=== PATIENT | female | born 1995 ===

== ENCOUNTER 2025-04-15 08:35 | Outpatient (AMB) | payer BC, SELFPAY ==
--- OUTSIDE RECORDS SUMMARY | 2024-09-10 04:00 | XMS_ITS ---
Author Organization [facility] Address [address] [address] Care Team Providers Care Security Escort Name Role Phone Migration, Provider Unavailable Unavailable Results Component Value Reference Range Notes COMPREHENSIVE METABOLIC PANE L Reviewed date: Interpretation: Performing Lab: Notes/Report: ALBUMIN 4.20017 G/DL ALKALINE PHOSPHATASE 70.30868 U/L ALT 19.06604 U/L AST 21.05015 U/L BILIRUBIN, TOTAL 0.63316 MG/DL BUN 16.26114 MG/DL CALC A/G RATIO 1.43168 RATIO CALC BUN/CREAT 16.07242 RATIO CALC GLOBULIN 2.72701 G/DL CALCIUM 9.73741 MG/DL CARBON DIOXIDE 16.07676 MEQ/L CHLORIDE 109.41334 MEQ/L CREATININE 1.66239 MG/DL eGFR (2020 CKD-EPI) 79.01573 ML/MIN/1.73 GLUCOSE 85.92019 MG/DL POTASSIUM 4.39809 MEQ/L PROTEIN, TOTAL 7.55675 G/DL SODIUM 138.83286 MEQ/L REASON FOR VISIT [facility] [place]s Temperature 99.3 degrees Fahrenheit 09/11/19 25 Blood pressure systolic 148 mm Hg 09/11/19 25 Blood pressure diastolic 90 mm Hg 025 Heart Rate 88 /min 09/10/2024 Respiratory Rate 16 /min 09/10/2024 Oximetry 100 % 09/10/2024 Encounters Encounter Location Date Provider Diagnosis [facility] [address] [place] [address] 09/10/2024 Provider Migration Plan Of Treatment No Information Progress Notes * LUIS KANGDOB: (29 yo F)Acc No.[id number]:09/10/2024 Patient: LUIS DORADO Provider: :1995 A ge:29 Y S ex:Female Date:09/10/2024 Address:[address] [place] [address], [place], [id number] Subjective: * Chief Complaints: * E MR-Toan Objective: * Vitals: T emp: 99.3 F, HR: 88 /min, BP: 148/90 mm Hg, RR: 16 /min, Oxygen sat %: 100 %. Plan: * Treatment: Value Reference Range A LBUMIN 4.07401 G/DL * A LKALINE PHOSPHATASE 70.23970 U/L * A LT 19.52124 U/L * A ST 21.13119 U/L * B ILIRUBIN, TOTAL 0.21593 MG/DL * B UN 16.47072 MG/DL * C ALC A/G RATIO 1.52056 RATIO * C ALC BUN/CREAT 16.33606 RATIO * C ALC GLOBULIN 2.92056 G/DL * C ALCIUM 9.55623 MG/DL * C ARBON DIOXIDE 16.30370 MEQ/L * C HLORIDE 109.93095 MEQ/L * C REATININE 1.78567 MG/DL * e GFR (2020 CKD-EPI) 79.23237 ML/MIN/1.73 * G LUCOSE 85.16615 MG/DL * P OTASSIUM 4.07493 MEQ/L * P ROTEIN, TOTAL 7.02285 G/DL * S ODIUM 138.79321 MEQ/L * Labs: * L ab: COMPREHENSIVE METABOLIC PANEL Value Reference Range A LBUMIN 4.60321 G/DL * A LKALINE PHOSPHATASE 70.35806 U/L * A LT 19.18457 U/L * A ST 21.27365 U/L * B ILIRUBIN, TOTAL 0.59288 MG/DL * B UN 16.70736 MG/DL * C ALC A/G RATIO 1.79604 RATIO * C ALC BUN/CREAT 16.30898 RATIO * C ALC GLOBULIN 2.93241 G/DL * C ALCIUM 9.72842 MG/DL * C ARBON DIOXIDE 16.70564 MEQ/L * C HLORIDE 109.87166 MEQ/L * C REATININE 1.56315 MG/DL * e GFR (2020 CKD-EPI) 79.20958 ML/MIN/1.73 * G LUCOSE 85.51341 MG/DL * P OTASSIUM 4.94792 MEQ/L * P ROTEIN, TOTAL 7.43178 G/DL * S ODIUM 138.38569 MEQ/L * Electronic signature of Prov ider Migration on 04/15/2025 at 07:51 AM MANAGER PARTY Sign off status: Pending * Provider: Date: 0 09/10/2024 Generated for Danielle bass/Prateek/Brunildaitting on: 06/15/2024 07:51 AM MANAGER PARTY
--- OUTSIDE RECORDS SUMMARY | 2024-11-09 09:30 | XMS_ITS | Continuity of Care Document ---
Author Organization [facility] Address [address], [address] [address] [place] [address] Phone Care Team Providers Care Communication Specialist Name Role Phone Omero Cannon MD Unavailable Unavailab le Omero Cannon MD Unavailable Unavailab le Allergies, Adverse Reactions, Alerts Substance Reaction Status Criticality Penicillins Rash / Hives, Swelling, Stuffy N Active No Information amoxicillin Rash / Hives, Swelling, Itchy Ey Active No Information Medications Medication Instructions Dosage Effective Dates (start - stop) Status Comments ACETAZOLAMIDE (unknown strength) Not Available - Active Procedures Procedure Date No EHR Charge DIAGNOSTIC LARYNGOSCOPY OFFICE/OUTPATIENT VISIT, [facility] Advance Directives Directive Yes / No Effective Date File Name No Information Encounters Encounter Description Practice Location Reason(s) For Visit Diagnoses Date Provider Providers Copied on Encounter OFFICE/OUTPAT IENT VISIT, [facility], [address], [address] [address], [place], [place], [id number], tel:[phone] APRIL OFFICE Sleep Problems (chief complaint) CONCETTA (obstructive sleep apnea)Arnold-C hiari malformation Davis Jamil. [address], [facility] [address], [place], [place], [id number], [place]. tel:[phone] Consulting Provider: Omero Bañuelos, [address], [place], [address]. tel:[phone] Family History Family Member Type Diagnosis Age At Onset No Information Payers Payer name Insurance type Covered libertarian ID Authoriza tion(s) [facility] [id number] Social History Type Description Quantity Date Captured Comments Alcohol Use Details No Caffeine Use Details Unknown Tobacco Use Status No Information Smoking Status Never smoker Non-Smoking Tobacco Use Details : No Details Available : No Details Available Sex Female Vital Signs Date / Time: Height Weight BMI Pulse Rate Blood Pressure Temperature Respiratory Rate Body Surface Area Head Circumference Head Circ. Percentile Wt./Adrian. Percentile BMI percentile Pulse Ox Inhaled Ox 4:05 PM 67.00 in 112.945 kg (249.00 lbs) 39.0 0 kg/m eter (2) 81 /min 121/79 mm[Hg] 97.60 F Chief Complaint And Reason For Visit From encounter dated '11/09/2024 14:30'. Sleep Problems (chief complaint). Description: The patient presents with sleep problems. The symptoms are unchanged. The patient's symptoms began weeks ago. These complaints are continual. The patient does not have: smoking or use of alcohol. The patient denies depression or wheezing. Reason For Referral Reason For Referral No Information History Of Present Illness Encounter Date Complaint History Of Prese nt Illness Sleep Problems The patient pres ents with sleep problems. The symptoms are unchanged. The patient's symptoms began weeks ago. These complaints are continual. The patient does not have: smoking or use of alcohol. The patient denies depression or wheezing. Comments: 29 yea r old female was referred by Dr. Fiore for sleep apnea. Patient states she was diagnosed with central apnea and recommended to check for obstructive sleep apnea. Patient states she has had symptoms such as witnessed apneas and snoring. 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 Reports she is having peripheral symptoms; numbness and tingling in extremities also states she forgets to breath while awake as well. Functional Status Date Functional Assessmen t No Information Instructions Date Instruction Additional Infor morris Follow up with neurosurgeon Daniel shanna to Arnold-Chiari malformation Follow up with pulmo nologist/sleep medicine specialist Related to CONCETTA (obstructive sleep apnea) Assessments Type Assessment Date assessment CONCETTA (obstructive sleep apnea) Ju assessment Arnold-Chiari malformation impression May need surgery for peripheral symptoms Mental Status Date Cognitive Assessment Orientation - [place] ed to time, place, person, situation.Normal Orientation Patient Care Teams Name Effective Dates (start - stop) Status Members No Information
--- OUTSIDE RECORDS SUMMARY | 2025-02-09 04:00 | XMS_ITS ---
Author Organization [facility] Address [address] [address] Care Team Providers Care Circulation Crew Leader Name Role Phone Migration, Provider Unavailable Unavailable REASON FOR VISIT EMR-Toan Encounters Encounter Location Date Provider Diagnosis [facility] [address] [address] 02/09/2025 Provider Migration Plan Of Treatment No Information Progress Notes * LUIS KANGDOB: (29 yo F)Acc No.[id number]:02/09/2025 Patient: Chandu NO LUIS CLIFFORD :1995 A ge:29 Y S ex:Female Address:[address], [place], [id number] Subjective: * Chief Complaints: * E MR-Toan * * Date:
--- OUTSIDE RECORDS SUMMARY | 2025-02-10 04:00 | XMS_ITS ---
Author Organization [facility] Address [address] [address] Care Team Providers Care Service Attendant Cafeteria Name Role Phone Migration, Provider Unavailable Unavailable Allergies Allergen (clinical drug ingredient) Drug/Non Drug Allergy documented on EMR Reaction Allergy Type Onset Date Status Substance with penicillin structure and antibacterial mechanism of action (substance) Cillins (uncoded) Reaction 1:Hives, Anaphylaxis Allergy Active amoxicillin Amoxicillin Reaction 1:Hives , Anaphylaxis Drug Allergy Active Substance with penicillin structure and antibacterial mechanism of action (substance) Penicillins Reaction 1:Hives, Anaphylaxis Drug Allergy Active REASON FOR VISIT EMR-Toan Medications Medication SIG (Take, Route, Frequency, Duration) Notes Start Date End Date Status Mounjaro subcutaneous *Pick strength-f orm from Medispan for eRX* Active acetaZOLAMIDE oral *Pick strength-f orm from Medispan for eRX* Active Encounters Encounter Location Date Provider Diagnosis [facility] [address] [address] 02/10/2025 Provider Migration Plan Of Treatment No Information Progress Notes * TARA LUIS CLIFFORDDOB: (29 yo F)Acc No.[id number]:02/10/2025 Patient: Chandu WINSLOWRITESH LUIS :1995 A ge:29 Y S ex:Female Address:[address], [place], [address] Subjective: * Chief Complaints: * E MR-Toan * Medications: T akingacetaZOLAMIDE oral , Notes to Pharmacist: *Pick strength-form from Medispan for eRX*Mounjaro subcutaneous , Notes to Pharmacist: *Pick strength-form from Medispan for eRX*Taking acetaZOLAMIDE oral , Notes to Pharmacist: *Pick strength-form from Medispan for eRX*Taking Mounjaro subcutaneous , Notes to Pharmacist: *Pick strength-form from Medispan for eRX* * Allergies: Cillins : Reaction 1:Hives, Anaphylaxis - AllergyAmoxicillin: Reaction 1:Hives, Anaphylaxis - AllergyPenicillins: Reaction 1:Hives, Anaphylaxis - Allergy * * Date:
--- OUTSIDE RECORDS SUMMARY | 2025-04-15 08:51 | XMS_ITS | Encounter Summary ---
Author Organization [facility] Address [address] [address] Care Team Providers Care Assembler Filters Name Role Phone Ramiro Wheeler MD Primary Care Provider [phone] Encounter Details Date Type Department Care Team (Late st Contact Info) Description 10/07/2024 Orders Only [address] 1 [place] [address] Elsi Mari Social History Tobacco Use Types Packs/Day Years Used Date Smoking Tobacco: Never Smokeless Tobacco: Never Alcohol Use Standard Drinks/Week Comments Never 0 (1 standard drink = 0.6 oz pur e alcohol) [facility] Utilities Answer Date Recorded In the past 12 months has [employer] electric, gas, oil, or water company threatened to shut off services in your home? No 10/07/2024 AUDIT-C Answer Date Recorded Q1: How often do you have a drink containing alcohol? Never 09/20/2024 Q2: How many drinks containi ng alcohol do you have on a typical day when you are drinking? Patient does not drink Q3: How often do you have si x or more drinks on one occasion? Never 09/20/2024 Overall Financial Resource Strain (CARDIA) Answe r Date Recorded How hard is it for you to pa y for the very basics like food, housing, medical care, and heating? Not very hard 09/20/2024 Depression Answer Date Recorded PHQ2 Screening score 0 10/07/2024 Last PHQ-9 Score Not on file 10/07/2024 Interpersonal Safety Answer Date Record ed Feels UN-safe at Home or Work/School no 10/07/2024 Verbal Abuse Denies 10/07/2024 Physical Signs of Abuse Present no 10/07/2024 Food Insecurity Answer Date Recorded Within the past 12 months, y ou worried that your food would run out before you got the money to buy more. Never true 10/08/19 25 Within the past 12 months, t he food you bought just didn't last and you didn't have money to get more. Never true 10/07/2024 Transportation Answer Date Recorded In the past 12 months, has l ack of transportation kept you from medical appointments or from getting medications? No 09/20 In the past 12 months, has l ack of transportation kept you from meetings, work, or from getting things needed for daily living? No 10/07/2024 Housing Stability Answer Date Recorded At any time in the past 12 m [facility], were you homeless or living in a correction (including now)? No 10/07/2024 In the last 12 months, was t here a time when you were not able to pay the mortgage or rent on time? 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 Gender Identity Not on file Sexual Orientation Not on file documented as of this encounter Functional Status * Question Answer Date of Assessment Author Assessment Qualifiers patient not sedated/intubated 10/08/2024 8:50 AM Irene Dimas RN Eye Opening 4-->(E4) spontaneous 10/08/2024 8:50 AM C Irene Burks RN Verbal Response 5-->(V5) oriented 10/08/2024 8:50 AM C Irene Burks RN Best Motor Response 6-->(M6) obeys commands 10/08/2024 8:50 AM Irene Dimas RN Sum Score 15 10/08/2024 8:50 AM Irene Gonzalez RN * Question Answer Date of Assessment Author Sensory Perception 4-->no impairment 10/08/2024 8:50 A M Irene Dimas RN Friction and Shear 3-->no apparent problem 10/08/2024 8:50 AM CDT Irene Guajardo RN Moisture 4-->rarely moist 10/08/2024 8:50 AM CDT Irene Espinosa RN Guero Score 21 10/08/2024 8:50 AM CDT Irene Maravilla RN Nutrition 3-->adequate 10/08/2024 8:50 AM CDT Irene Maravilla RN Activity 3-->walks occasionally 10/08/2024 8:50 AM CDT Irene Guajardo RN Mobility 4-->no limitation 10/08/2024 8:50 AM CDT Irene Guajardo RN * Question Answer Date of Assessment Author Height 67.008 10/07/2024 3:41 PM CDT Pat Garibay RN Weight 4000.03 10/07/2024 3:41 PM CDT Pat Garibay RN * Question Answer Date of Assessment Author In the past 12 months, has lack of transportation kept you from medical appointments or from getting medications? No 10/07/2024 6:00 PM CDT Natalia Garibay RN Within the past 12 months, the food you bought just didn't last and you didn't have money to get more. Never true 10/07/2024 6:00 PM CDT Richard Garibay RN * Question Answer Date of Assessment Author Pain Description aching 10/08/2024 1:47 AM CDT Vianey Kraft RN * Vital Signs Question Answer Date of Assessment Author BP 123/79 10/08/2024 11:30 AM CDT Sepe da, Valery S Temp 98.1 10/08/2024 11:30 AM CDT Sepe da, Valery S Pulse 72 10/08/2024 11:30 AM CDT Sepe da, Valery S Resp 14 10/08/2024 11:30 AM CDT Sepe da, Valery S SpO2 97 10/08/2024 11:30 AM CDT Sepbilly da Valery S Heart Rate Source Monitor 10/08/2024 3:56 AM CDT Cash Cedillo BP Location Right Arm 10/08/2024 3:56 AM CDT Cash Cedillo BP Method Automatic 10/08/2024 3:56 AM CDT Cash Cedillo HR per Pulse Ox 64 10/08/2024 11:30 AM CDT Valery Echols S * Question Answer Date of Assessment Author [address] 10/08/2024 1:00 PM CDT SepValery aguilar S * Question Answer Date of Assessment Author Urine 0 10/08/2024 4:00 AM CDT Vianey Phillips RN Emesis 0 10/08/2024 4:00 AM CDT Sheet Vianey banerjee RN Other 0 10/08/2024 4:00 AM CDT Vianey Phillips RN * Question Answer Date of Assessment Author At any time in the past 12 months, were you homeless or living in a correction (including now)? No 10/07/2024 6:00 PM CDT Pat Garibay RN * Question Answer Date of Assessment Author In the past 12 months has [employer] electric, gas, oil, or water [employer] threatened to shut off services in your home? No 10/07/2024 6:00 PM MACRINAT Angus Garibay RN * Question Answer Date of Assessment Author Ambulation Distance (Feet) 0 10/08/2024 8:5 0 AM Irene Dimas RN * Question Answer Date of Assessment Author Pain Management Interventions pain management plan reviewed with patient/caregiver 10/08/2024 8:50 AM Irene Dimas RN (0-10) Pain Rating: Activity 3 10/08/2024 8:50 AM Irene Dimas RN (0-10) Pain Rating: Rest 3 025 8:50 AM Irene Dimas RN (0-10) Pain Goal/Acceptable Level 3 10/08/2024 8:50 AM Irene Dimas RN Preferred Pain Scale number (Numeric Rat ing Pain Scale) 10/08/2024 8:50 AM Irene Dimas RN Pain Side/Orientation generalized 10/08/2024 8:50 AM Irene Dimas RN * Question Answer Date of Assessment Author VTE Prevention/Management bleeding risk factor(s) identified 10/08/2024 8:50 AM MACRINAT Irene Guajardo RN * Question Answer Date of Assessment Author Pain-Patient Reports Acceptable 10/08/2024 3:09 PM Irene Flores RN * Question Answer Date of Assessment Author Assessment Qualifiers patient not sedated/intubated 10/08/2024 8:50 AM Irene Dimas RN Eye Opening 4-->(E4) spontaneous 10/08/2024 8:50 AM C Irene Burks RN Verbal Response 5-->(V5) oriented 10/08/2024 8:50 AM Irene Flores RN Best Motor Response 6-->(M6) obeys commands 10/08/2024 8:50 AM Irene Dimas RN Sum Score 15 10/08/2024 8:50 AM Irene Gonzalez RN * Question Answer Date of Assessment Author Sensory Perception 4-->no impairment 10/08/2024 8:50 A M MACRINAT Irene Guajardo RN Friction and Shear 3-->no apparent problem 10/08/2024 8:50 AM MACRINAT Irene Guajardo RN Moisture 4-->rarely moist 10/08/2024 8:50 AM MACRINAT Irene Espinosa RN Guero Score 21 10/08/2024 8:50 AM Irene Gonzalez RN Nutrition 3-->adequate 10/08/2024 8:50 AM Irene Gonzalez RN Activity 3-->walks occasionally 10/08/2024 8:50 AM MACRINAT Irene Guajardo RN Mobility 4-->no limitation 10/08/2024 8:50 AM MACRINAT Irene Guajardo RN * Question Answer Date of Assessment Author Height 67.008 10/07/2024 3:41 PM Pat Navarro RN Weight 4000.03 10/07/2024 3:41 PM MACRINAT Pat Garibay RN * Question Answer Date of Assessment Author In the past 12 months, has lack of transportation kept you from medical appointments or from getting medications? No 10/07/2024 6:00 PM CDT Natalia Garibay RN Within the past 12 months, the food you bought just didn't last and you didn't have money to get more. Never true 10/07/2024 6:00 PM CDT Richard Garibay RN * Question Answer Date of Assessment Author Pain Description aching 10/08/2024 1:47 AM CDT Vianey Kraft RN * Vital Signs Question Answer Date of Assessment Author BP 123/79 10/08/2024 11:30 AM CDT Sepe da, Valery S Temp 98.1 10/08/2024 11:30 AM CDT Sepe da, Valery S Pulse 72 10/08/2024 11:30 AM CDT Sepe da, Valery S Resp 14 10/08/2024 11:30 AM CDT Sepe da, Valery S SpO2 97 10/08/2024 11:30 AM CDT Sepe da Valery S Heart Rate Source Monitor 10/08/2024 3:56 AM CDT Cash Cedillo BP Location Right Arm 10/08/2024 3:56 AM CDT Cash Cedillo BP Method Automatic 10/08/2024 3:56 AM CDT Cash Cedillo HR per Pulse Ox 64 10/08/2024 11:30 AM CDT Natalia epedaMarcope S * Question Answer Date of Assessment Author [address] 10/08/2024 1:00 PM CDT Jigared a Valery S * Question Answer Date of Assessment Author Urine 0 10/08/2024 4:00 AM CDT Vianey Phillips RN Emesis 0 10/08/2024 4:00 AM CDT Vianey Phillips RN Other 0 10/08/2024 4:00 AM CDT Vianey Phillips RN * Question Answer Date of Assessment Author At any time in the past 12 months, were you homeless or living in a correction (including now)? No 10/07/2024 6:00 PM CDT Pat Garibay RN * Question Answer Date of Assessment Author In the past 12 months has [employer] electric, gas, oil, or water company threatened to shut off services in your home? No 10/07/2024 6:00 PM Angus Navarro RN * Question Answer Date of Assessment Author Ambulation Distance (Feet) 0 10/08/2024 8:5 0 AM Irene Dimas RN * Question Answer Date of Assessment Author Pain Management Interventions pain management plan reviewed with patient/caregiver 10/08/2024 8:50 AM Irene Dimas RN (0-10) Pain Rating: Activity 3 10/08/2024 8:50 AM Irene Dimas RN (0-10) Pain Rating: Rest 3 025 8:50 AM Irene Dimas RN (0-10) Pain Goal/Acceptable Level 3 10/08/2024 8:50 AM Irene Dimas RN Preferred Pain Scale number (Numeric Rat ing Pain Scale) 10/08/2024 8:50 AM Irene Dimas RN Pain Side/Orientation generalized 10/08/2024 8:50 AM Irene Dimas RN * Question Answer Date of Assessment Author VTE Prevention/Management bleeding risk factor(s) identified 10/08/2024 8:50 AM Irene Dimas RN * Question Answer Date of Assessment Author Pain-Patient Reports Acceptable 10/08/2024 3:09 PM Irene Flores RN documented as of this encounter Mental Status * Question Answer Entry Date Author Assessment Qualifiers patient not sedated/intubated 10/08/2024 8:50 AM Irene Dimas RN Eye Opening 4-->(E4) spontaneous 10/08/2024 8:50 AM Irene Dimas RN Verbal Response 5-->(V5) oriented 10/08/2024 8:5 0 AM Irene Dimas RN Best Motor Response 6-->(M6) obeys commands 09/20 8:50 AM Irene Dimas RN Sum Score 15 10/08/2024 8:50 AM Irene Dimas RN * Question Answer Entry Date Author Sensory Perception 4-->no impairment 10/08/2024 8:50 A M Irene Dimas RN Friction and Shear 3-->no apparent problem 10/08/2024 8:50 AM CDT Irene Guajardo RN Moisture 4-->rarely moist 10/08/2024 8:50 AM CDT Irene Espinosa RN Guero Score 21 10/08/2024 8:50 AM CDT Irene Maravilla RN Nutrition 3-->adequate 10/08/2024 8:50 AM CDT Irene Maravilla RN Activity 3-->walks occasionally 10/08/2024 8:50 AM CDT Irene Guajardo RN Mobility 4-->no limitation 10/08/2024 8:50 AM CDT Irene Guajardo RN * Question Answer Entry Date Author Height 67.008 10/07/2024 3:41 PM CDT Pat Garibay RN Weight 4000.03 10/07/2024 3:41 PM CDT Pat Garibay RN * Question Answer Entry Date Author In the past 12 months, has lack of transportation kept you from medical appointments or from getting medications? No 10/07/2024 6:00 PM MACRINAT Pat Garibay RN Within the past 12 months, t he food you bought just didn't last and you didn't have money to get more. Never true 10/07/2024 6:00 PM CDT Pat Garibay RN * Question Answer Entry Date Author Pain Description aching 10/08/2024 1:47 AM CDT Vianey Kraft RN * Vital Signs Question Answer Entry Date Author BP 123/79 10/08/2024 11:30 AM CDT Sepbilly daAshValery S Temp 98.1 10/08/2024 11:30 AM CDT Sepbilly da Valery S Pulse 72 10/08/2024 11:30 AM CDT Sepbilly da Valery S Resp 14 10/08/2024 11:30 AM CDT Sepe da Valery S SpO2 97 10/08/2024 11:30 AM CDT Breanna daAshValery S Heart Rate Source Monitor 10/08/2024 3:56 AM CDT Cash Cedillo BP Location Right Arm 10/08/2024 3:56 AM CDT Cash Cedillo BP Method Automatic 10/08/2024 3:56 AM CDT Cash Cedillo HR per Pulse Ox 64 10/08/2024 11:30 AM CDT Valery Echols S * Question Answer Entry Date Author [address] 10/08/2024 1:00 PM CDT Valery Whatley S * Question Answer Entry Date Author Urine 0 10/08/2024 4:00 AM CDT Vianey Phillips RN Emesis 0 10/08/2024 4:00 AM CDT Sheet Vianey banerjee RN Other 0 10/08/2024 4:00 AM CDT Vianey Phillips RN * Question Answer Entry Date Author At any time in the past 12 months, were you homeless or living in a correction (including now)? No 10/07/2024 6:00 PM MACRINAT Pat Garibay RN * Question Answer Entry Date Author In the past 12 months has [employer], gas, oil, or water [employer] threatened to shut off services in your home? No 10/07/2024 6:00 PM CDT Angus Garibay RN * Question Answer Entry Date Author Ambulation Distance (Feet) 0 10/08/2024 8:5 0 AM MACRINAT Irene Guajardo RN * Question Answer Entry Date Author Pain Management Interventions pain management plan reviewed with patient/caregiver 10/08/2024 8:50 AM Irene Dimas RN (0-10) Pain Rating: Activity 3 10/08/2024 8:50 AM Irene Dimas RN (0-10) Pain Rating: Rest 3 025 8:50 AM Irene Dimas RN (0-10) Pain Goal/Acceptable Level 3 10/08/2024 8:50 AM Irene Dimas RN Preferred Pain Scale number (Numeric Rat ing Pain Scale) 10/08/2024 8:50 AM Irene Dimas RN Pain Side/Orientation generalized 10/08/2024 8:50 AM MACRINAT Irene Guajardo RN * Question Answer Entry Date Author VTE Prevention/Management bleeding risk factor(s) identified 10/08/2024 8:50 AM rIene Dimas RN * Question Answer Entry Date Author Pain-Patient Reports Acceptable 10/08/2024 3:09 PM C Irene Burks, ERNESTINA documented in this encounter Plan of Treatment Not on file documented as of this encounter Visit Diagnoses Not on filedocumented in this encounter Care Teams Assembler Filters Relationship Specialty Start Date End Date Ramiro Wheeler MD [address], [place] [id number] PCP - General Family Medicine 05/31/24 documented as of this encounter
--- OUTSIDE RECORDS SUMMARY | 2025-04-15 08:51 | XMS_ITS | Clinical Summary ---
Author Organization [facility] Address [address] [place] [address] Care Team Providers Care [employer] Name Role Phone Ramiro Wheeler MD Primary Care Provider [phone] Allergies Active Allergy Reactions Criticality Noted Date Comments Prochlorperazine Other (See Comments) 5 psychosis Penicillins Shortness Of Breath High 2020 Hives all over Metoclopramide Other (See Comments) High 07/28/2024 Psychosis Medications ondansetron (ZOFRAN-ODT) 4 MG disintegrating tablet DISSOLVE 1 tablet (4 mg total) by mouth every 8 (eight) hours as needed for Nausea. 16 tablet 5 Active acetaminophen 650 mg Tab Take 1 tablet (650 mg total) by mouth every 6 (six) hours as needed. 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 Patient with Chiari I malformation but possible IIH symptoms. Although at this time, does not seem to be consistent with IIH. She states recent LP did not provide any relief and that Diamox did not help with symptoms. Her recent eye exam without papilledema, although patient does report of losing 30 lbs since initial onset. Migraine cocktail: MgS, Benadryl, Zofran x 3 doses. Depakote 500 mg x 1. If Depakote does provide relief, consider as outpatient Patient later tells RN headache 07/30, did not want cocktail or Depakote at this time. Avoid opiates as can cause rebound Would continue to hold Diamox as did not provider her with relief in the past and patient's most recent opthalmologic evaluation was negative, LP opening pressure 18. Per chart review, there was discussion of repeat LP while off Diamox for at least 2 weeks to see opening pressure Patient with various symptoms of bradycardia, shortness of breath, episodic chest pain, dizziness. Consider outpatient autonomic dysfunction test as well as endocrine due to intermittent flushing, changes in sweating, dizziness, watery diarrhea Patient has had multiple extensive workup and admissions for similar symptoms. Recommend follow up with established neurosurgeon for continued care and management. Assessment & Plan (10/07/2024 3:14 PM CDT): Migraine cocktail: MgS, Benadryl, Zofran x 3 doses. Depakote 500 mg x 1. If Depakote does provide relief, consider as outpatient Avoid opiates as can cause rebound Would continue to hold Diamox as did not provider her with relief in the past and patient's most recent opthalmologic evaluation was negative, LP opening pressure 18 Patient with various symptoms of bradycardia, shortness of breath, episodic chest pain, dizziness. Consider outpatient autonomic dysfunction test as well as endocrine due to intermittent flushing, changes in sweating, dizziness, watery diarrhea Due to above, recommend MRI Cervical w wo Idiopathic intracranial hypertension 09/20/2024 Myopia of both eyes with astigmatism 09/17/2024 Chiari malformation type I 09/17/2024 Other headache syndrome 06/13/2024 Assessment & Plan (12/17/2024 3:14 PM CDT): 07/18/24 Presents for hospital follow up. Excellent vision. No papilledema on exam. Endorses history of TVO and burst of colors. Denies PST, severe headache, diplopia, nausea. Has history of weight gain over last 4 years. HVF 24-2: Normal OU. OCT RNFL: Avg 100/105, normal OU. MRI Brain wo - 07/08/24 Cerebellar tonsils are 4 mm right and 5 mm left below the foramen magnum, without crowding of the craniocervical junction or signal intensity changes of the spinal cord.. The posterior fossa appears small. Normal flow of CSF through the foramen magnum anterior to the craniocervical junction. Age-appropriate volume and signal intensity of the brain parenchyma. No intracranial hemorrhage, acute ischemia, extra-axial fluid collections or parenchymal mass lesions. No hydrocephalus. No suspicious focal bone marrow lesions. MRV Head wo - 06/01/24 No obstruction or occlusion identified within the intracranial venous sinuses and imaged veins. Reassuring MRI brain and MRV head. Pt has declined LP twice. Differential: migraine or other headache disorder, musculoskeletal pain, CONCETTA, IIH. 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 09/17/24 - Currently taking diamox 500 mg ER + 250 mg tab daily. Having side effects from diamox. OCT RNFL - stable from 2 months ago, Avg 103/104. OCT GCL - no thinning OU, Avg 84/84. No papilledema OU. +SVPs seen which suggests normal ICP. I see no immediate threat to her vision. Okay to try stopping the diamox from my standpoint. Defer FORBES management to Neurology. Recheck in 3 months. 09/29/24 - LP Opening pressure measured 18 cm H2O. 10/19/24 - MRI brain w/wo - Impression No acute intracranial findings. No abnormal parenchymal signal or enhancement. 11/05/24 - IR Angiogram Cerebral Bilateral ([facility] - Dr. Perdue) Impression 1. MILD FOCAL REGION OF STENOSIS AT THE RIGHT TRANSVERSE-SIGMOID SINUS 2. NO SIGNIFICANT VENOUS SINUS GRADIENT OBSERVED 3. NO PROCEDURAL COMPLICATIONS 11/22/24 - MRI brain wo ([facility]) - Impression No significant intracranial abnormality. MRA head - Impression No intracranial vessel high-grade stenosis, occlusion, or aneurysm. MRV head - Impression Short-segment filling defect near the right transverse-sigmoid sinus junction, possibly artifactual but not evident on postcontrast images from MRI 10/19/2024, raising the possibility of partially occlusive thrombus. Consider follow-up CTV for further assessment. 11/23/24 - CTV head - Impression No evidence of superficial or deep venous sinus thrombosis. 12/17/24 - Currently taking diamox 1,500 mg-2,000 mg tabs daily based on how she feels. OCT RNFL - stable OU, Avg 111/104. OCT GCL - no thinning OU, Avg 84/83. Overall stable exam without papilledema OU. Defer diamox management to her Neurology/NSGY team. I see no immediate threat to her vision. She will continue f/u with Dr. Sky Muñoz at [facility]. Followed by Dr. Jose Lopez (Neurology at [facility]), Dr. Param Perdue (NSGY at [facility]), and Dr. Duval (Neurosurgeon at [facility] in [place]) Assessment & Plan (09/17/2024 2:50 PM CDT): 07/18/24 Presents for hospital follow up. Excellent vision. No papilledema on exam. Endorses history of TVO and burst of colors. Denies PST, severe headache, diplopia, nausea. Has history of weight gain over last 4 years. HVF 24-2: Normal OU. OCT RNFL: Avg 100/105, normal OU. MRI Brain wo - 07/08/24 Cerebellar tonsils are 4 mm right and 5 mm left below the foramen magnum, without crowding of the craniocervical junction or signal intensity changes of the spinal cord.. The posterior fossa appears small. Normal flow of CSF through the foramen magnum anterior to the craniocervical junction. Age-appropriate volume and signal intensity of the brain parenchyma. No intracranial hemorrhage, acute ischemia, extra-axial fluid collections or parenchymal mass lesions. No hydrocephalus. No suspicious focal bone marrow lesions. MRV Head wo - 06/01/24 No obstruction or occlusion identified within the intracranial venous sinuses and imaged veins. Reassuring MRI brain and MRV head. Pt has declined LP twice. Differential: migraine or other headache disorder, musculoskeletal pain, CONCETTA, IIH. 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 09/17/24 - Currently taking diamox 500 mg ER + 250 mg tab daily. Having side effects from diamox. OCT RNFL - stable from 2 months ago, Avg 103/104. OCT GCL - no thinning OU, Avg 84/84. No papilledema OU. +SVPs seen which suggests normal ICP. I see no immediate threat to her vision. Okay to try stopping the diamox from my standpoint. Defer FORBES management to Neurology. Recheck in [address] Jany Prieto (Neurology at [facility]) and Dr. Duval (Neurosurgeon at [facility] in [place]) Assessment & Plan (07/25/2024 9:12 AM 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): 07/18/24 Presents for hospital follow up. Excellent vision. No papilledema on exam. Endorses history of TVO and burst of colors. Denies PST, severe headache, diplopia, nausea. Has history of weight gain over last 4 years. HVF 24-2: Normal OU. OCT RNFL: Avg 100/105, normal OU. MRI Brain wo - 07/08/24 Cerebellar tonsils are 4 mm right and 5 mm left below the foramen magnum, without crowding of the craniocervical junction or signal intensity changes of the spinal cord.. The posterior fossa appears small. Normal flow of CSF through the foramen magnum anterior to the craniocervical junction. Age-appropriate volume and signal intensity of the brain parenchyma. No intracranial hemorrhage, acute ischemia, extra-axial fluid collections or parenchymal mass lesions. No hydrocephalus. No suspicious focal bone marrow lesions. MRV Head wo - 06/01/24 No obstruction or occlusion identified within the intracranial venous sinuses and imaged veins. Reassuring MRI brain and MRV head. Pt has declined LP twice. Differential: migraine or other headache disorder, musculoskeletal pain, CONCETTA, IIH. 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 - RTC as needed Resolved Problems Problem Noted Date Diagnosed Date Resolved Date Dizziness 10/07/2024 10/08/2024 Ataxia 10/07/2024 10/08/2024 Papilledema of both eyes 06/13/2024 Stroke-like symptoms 05/30/2024 025 Family History Medical History Relation Name Comments Atrial fibrillation Maternal Grandmother Hypertension Maternal Grandmother Migraines Maternal Grandmother Stroke Maternal Grandmother Migraines Mother Heart attack Paternal Grandfather Relation Name Status Comments Maternal Grandmother Mother Paternal Grandfather Social History Tobacco Use Types Packs/Day Years Used Date Smoking Tobacco: Never Smokeless Tobacco: Never Alcohol Use Standard Drinks/Week Comments Never 0 (1 standard drink = 0.6 oz pur e alcohol) [facility] Utilities Answer Date Recorded In the past 12 months has th e electric, gas, oil, or water company threatened [...] Answer Date Recorded PHQ2 Screening score 0 11/14/2024 Last PHQ-9 Score Not on file 11/14/2024 Interpersonal Safety Answer Date Record ed Feels UN-safe at Home or Work/School no 11/14/2024 Verbal Abuse Denies 11/14/2024 Physical Signs of Abuse Present no 11/14/2024 Food Insecurity Answer Date Recorded Within the past 12 months, y ou worried that your food would run out before you got the money to buy more. Never true 10/08/19 Within the past 12 months, t he [...] any time in the past 12 m [facility], were you homeless or living in a assisted (including now)? No 10/07/2024 In the last 12 months, was t here a time when you were not able to pay the mortgage or rent on time? No 10/07/2024 Number of Times Moved in the Last Year Not on fi le 10/07/2024 Comments No Sex and Gender Information Value Date Recorded Sex Assigned at Not on file Legal Sex Female 11:32 PM 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 Gender Identity Not on file Sexual Orientation Not on file Last Filed Vital Signs Vital Sign Reading Time Taken Comments Blood Pressure 136/89 11/14/2024 8:09 PM CDT Pulse 88 11/14/2024 8:09 PM CDT Temperature 36.9 C (98.4 F) 11/14/2024 6:06 PM CDT Respiratory Rate 18 11/14/2024 8:09 PM CDT Oxygen Saturation 97% 11/14/2024 8:09 PM CDT Inhaled Oxygen Concentration - - Weight 113.4 kg (250 lb) 11/14/2024 2:41 PM CDT Height 170.2 cm (5' 7 ) 11/14/2024 2:41 PM CDT Body Mass Index 39.16 11/14/2024 2:41 PM CDT Plan of Treatment Health Maintenance Due Date Last Done Comments Hepatitis B Vaccines (1 of 3 - 19+ 3-dose series) 2016 Pneumococcal Vaccine (0-5y, or all patients at risk) (1 of 2 - PCV) 2016 Tetanus Booster Vaccines 2016 Cervical Cancer Screening: P ap Smear 2018 HPV Vaccines (1 - 3-dose SCD M series) 2024 Cervical Cancer Screening 01/04/2025 COVID-19 Vaccine ( - 2024-2 6 season) 2025 Seasonal Influenza Vaccine (#1) 2025 Mood Screen 11/14/2025 11/14/2024 Lipid Screening 05/31/2029 05/31/2024 Cervical Cancer Screening: HPV/Cotest 01/03/2030 01/03/2025 Hepatitis A Vaccines Aged Out No long er eligible based on patient's age to complete this topic Hib Vaccines Aged Out No longer eligi ble based on patient's age to complete this topic Meningococcal (ACWY) Vaccines Aged Out No longer eligible based on patient's age to complete this topic Meningococcal B Vaccine Aged Out No l onger eligible based on patient's age to complete this topic Pediatric RSV Vaccines Aged Out No lo nger eligible based on patient's age to complete this topic Polio Vaccines Aged Out No longer kee gible based on patient's age to complete this topic Procedures Procedure Name Priority Date/Time Associated Diagnosis Comments LIPID PANEL Routine 05/31/2024 5:40 AM 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 from Last 3 Months or Most Recently Relevant to Health Maintenance Results * Lipid Panel (05/31/2024 5:40 AM 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) [facility] Cholesterol, Total 197 <200 mg/dL 2024 6:39 AM [facility] Comment:Fasting lipid profil e if not checked within last 3 Triglycerides 137 <150 mg/dL 05/31/2024 6:39 AM 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 Comment:Fasting lipid profil e if not checked within last 3 HDL Cholesterol 44 40 - 60 mg/dL 05/31/2024 6:39 AM [facility] Comment: Fasting lipid profile if not checked within last 3 < 40 mg/dL: Low HDL-Cholesterol (major risk factor for CHD) >= 60 mg/dL: High HDL-Cholesterol (negative risk factor for CHD) LDL Cholesterol 126 <130 mg/dL 6:39 AM 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 Cholesterol/HDL Ratio 4.5 05/31/2024 6:39 AM 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 Non-HDL Cholesterol 153 mg/dL 05/31/2024 6:39 AM [facility] Blood VENOUS BLOOD SPECIMEN / Unknown Venipuncture / Unknown 05/31/2024 5:40 AM 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 05/31/2024 6:04 AM 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 us Haim Renae DO LAB BLOOD ORDERABLES Final Resul t [facility] [address] [place], [place] [id number] [place] [address] from Last 3 Months or Most Recently Relevant to Health Maintenance Insurance [facility] [employer] [facility] [employer] [facility] [employer] [facility] [employer] [facility] Advance Directives For more information, please contact: [phone] * Full Code (Latest Code Status on File) Date Activated Date Inactivated Comments 10/07/2024 5:13 PM 10/08/2024 6:04 PM * Full Code Date Activated Date Inactivated Comments 09/20/2024 4:39 AM 09/22/2024 12:24 AM * Full Code Date Activated Date Inactivated Comments 06/14/2024 12:39 AM 06/14/2024 5:55 PM * Full Code Date Activated Date Inactivated Comments 05/30/2024 4:56 PM 06/06/2024 6:21 PM Care Teams Counselor [employer] Relationship Specialty Start Date End Date Ramiro Wheeler MD [address] [place] [id number] PCP - General Family Medicine 05/31/24
--- OUTSIDE RECORDS SUMMARY | 2025-04-15 08:51 | XMS_ITS | Encounter Summary ---
Author Organization [facility] Address [address] [address] Care Team Providers Care Poultry Boner Name Role Phone Ramiro Wheeler MD Primary Care Provider [phone] Reason for Visit * Reason Comments Consultation Encounter Details Date Type Department Care Team (Late st Contact Info) Description 09/17/2024 Telephone [facility] [address] [place] [address] Crystal Corey MD [address] [place], [place] [address] Consultation Social History Tobacco Use Types Packs/Day Years Used Date Smoking Tobacco: Never Smokeless Tobacco: Never Alcohol Use Standard Drinks/Week Comments Never 0 (1 standard drink = 0.6 oz pur e alcohol) [facility] Utilities Answer Date Recorded In the past 12 months has [employer], [employer], oil, or water [employer] threatened to shut off services in your home? No 06/14/2024 AUDIT-C Answer Date Recorded Q1: How often [...] Answer Date Recorded PHQ2 Screening score 0 09/20/2024 Last PHQ-9 Score Not on file 09/20/2024 Interpersonal Safety Answer Date Record ed Feels UN-safe at Home or Work/School no 09/20/2024 Verbal Abuse Denies 09/20/2024 Physical Signs of Abuse Present no 09/20/2024 Food Insecurity Answer Date Recorded Within the past 12 months, y ou worried that your food would run out before you got the money to buy more. Never true 09/21/19 25 Within the past 12 months, t he food you bought just didn't last and you didn't have money to get more. Never true 09/20/2024 Transportation Answer Date Recorded In the past 12 months, has l ack of transportation kept you from medical appointments or from getting medications? No 05/2024 In the past 12 months, has l ack of transportation kept you from meetings, work, or from getting things needed for daily living? No 09/20/2024 Housing Stability Answer Date Recorded At any time in the past 12 m [place], were you homeless or living in a custodial (including now)? No 09/20/2024 In the last 12 months, was t here a time when you were not able to pay the mortgage or rent on time? No 09/20/2024 Number of Times Moved in the Last Year Not on fi le 09/20/2024 Comments No Sex and Gender Information Value Date Recorded Sex Assigned at Not on file Legal Sex Female 11:32 PM [employer] Gender Identity Not on file Sexual Orientation Not on file documented as of this encounter Functional Status * QRS Interval (Sec) Answer Date of Assessment Author 0.1 09/20/2024 9:57 PM CDT Interface , Doc Flowsheet In * Question Answer Date of Assessment Author Assessment Qualifiers patient not sedated/intubated 09/20/2024 10:00 PM CDT Mykel Urbina RN Eye Opening 4-->(E4) spontaneous 09/20/2024 10:00 PM CDT Mykel Urbina RN Verbal Response 5-->(V5) oriented 09/20/2024 10: 00 PM CDMykel Dave RN Best Motor Response 6-->(M6) obeys commands 0 05/2024 10:00 PM Mykel Araujo RN Sum Score 15 09/20/2024 10:00 PM Mykel Araujo RN * Question Answer Date of Assessment Author AUDIT-C Score 0 09/20/2024 5:12 AM Booker Leggett RN Q1: How often do you have a drink containing alcohol? Never 09/20/2024 5:12 AM Booker Perez RN Q2: How many drinks containing alcohol do you have on a typical day when you are drinking? Patient does not drink 09/20/2024 5:12 AM Booker Perez RN Q3: How often do you have six or more drinks on one occasion? Never 09/20/2024 5:12 AM Booker Perez RN * Question Answer Date of Assessment Author Factors That Aggravate Pain activity 09/20/2024 5: 00 AM Booker Perez RN Pain Onset/Duration movement 09/20/2024 5:00 AM Booker Lara RN * Question Answer Date of Assessment Author Sensory Perception 4-->no impairment 09/20/2024 10:00 PM Mykel Araujo RN Friction and Shear 3-->no apparent problem 09/20/2024 10:00 PM Mykel Araujo RN Moisture 4-->rarely moist 09/20/2024 10:00 PM Mykel Araujo RN Guero Score 22 09/20/2024 10:00 PM Mykel Austin RN Nutrition 3-->adequate 09/20/2024 10:00 PM Mykel Austin RN Activity 4-->walks frequently 09/20/2024 10:00 PM Mykel Araujo RN Mobility 4-->no limitation 09/20/2024 10:00 PM Mykel Araujo, RN * Question Answer Date of Assessment Author Height 67 09/20/2024 4:16 PM Anna Hobbs RN Weight 4160 09/20/2024 4:16 PM Anna Hobbs RN * Question Answer Date of Assessment Author In the last 12 months, was there a time when you were not able to pay the mortgage or rent on time? No 09/20/2024 4:37 AM Booker Perez RN How hard is it for you to pay for the very basics like food, housing, medical care, and heating? Not very hard 09/20/2024 4:37 AM Booekr Perez RN In the past 12 months, has lack of transportation kept you from medical appointments or from getting medications? No 09/20/2024 4:37 AM Booker Perez RN In the past 12 months, has lack of transportation kept you from meetings, work, or from getting things needed for daily living? No 09/20/2024 4:37 AM Booker Perez RN Within the past 12 months, you worried that your food would run out before you got the money to buy more. Never true 09/20/2024 4:37 AM Ksenia Perez RN Within the past 12 months, the food you bought just didn't last and you didn't have money to get more. Never true 09/20/2024 4:37 AM Edison Perez RN * Vital Signs Question Answer Date of Assessment Author BP 124/80 09/20/2024 9:45 PM Allyssa Babcock Temp 97.8 09/20/2024 9:45 PM Allyssa Babcock SpO2 98 09/20/2024 9:45 PM Allyssa Babcock BP Location Right Arm 09/20/2024 4:37 AM Booker Lopez RN BP Method Automatic 09/20/2024 4:37 AM Booker Lopez RN * Question Answer Date of Assessment Author P.O. 240 09/20/2024 11:00 PM MACRINAT Mykel Mcgowan RN * Question Answer Date of Assessment Author HR per Pulse Ox 58 09/20/2024 2:40 AM CDT Amrit Mattson RN * Anti-VTE: Venous Foot Pump (VFP) On Answer Date of Assessment Author N/A 09/20/2024 10:00 PM MACRINAT Maria Urbina RN * Question Answer Date of Assessment Author At any time in the past 12 m [place], were you homeless or living in a custodial (including now)? No 09/20/2024 4:37 AM MACRINAT Valerie Schaeffer RN * Question Answer Date of Assessment Author Ambulation Distance (Feet) 10 09/20/2024 10: 00 PM Mykel Araujo RN * Question Answer Date of Assessment Author Pain Management Interventions biofeedback utilized 09/20/2024 5:00 AM Booker Perez RN (0-10) Pain Rating: Activity 6 09/20/2024 9:00 AM Anna Hobbs RN (0-10) Pain Rating: Rest 6 025 9:00 AM Anna Hobbs RN Nonverbal Indicators of Pain activity pattern change 09/20/2024 5:00 AM Booker Perez RN (0-10) Pain Goal/Acceptable Level 0 09/20/2024 9:00 AM Anna Hobbs RN Preferred Pain Scale number (Numeric Rat ing Pain Scale) 09/20/2024 10:00 PM Mykel Araujo RN Pain Side/Orientation bilateral 09/20/2024 5:00 AM Booker Perez RN Pain Description intermittent 09/20/2024 5:00 AM oBoker Perez RN Pain Location head 09/20/2024 5:00 AM Booker Perez RN * Question Answer Date of Assessment Author VTE Prevention/Management SCDs (sequential compression devices) off 09/20/2024 10:00 PM Mykel Araujo RN * Anti-VTE: Pneumatic Compressors On Answer Date of Assessment Author N/A 09/20/2024 10:00 PM CDT Maria Urbina RN * Anti-VTE: Anti-Embolism Stockings On Answer Date of Assessment Author N/A 09/20/2024 10:00 PM CDT Maria Urbina RN * Question Answer Date of Assessment Author Pulse 54 09/20/2024 9:57 PM CDT Rosemary Verdin Heart Rate Source Monitor 09/20/2024 9:57 PM CDT Rosemary Aleman * Question Answer Date of Assessment Author Pain-Patient Reports No pain 09/20/2024 9:00 AM Anna Cummings RN * Question Answer Date of Assessment Author Resp 16 09/20/2024 5:12 AM MACRINAT Booker Palmer RN * QRS Interval (Sec) Answer Date of Assessment Author 0.1 09/20/2024 9:57 PM CDT Interface , Doc Flowsheet In * Question Answer Date of Assessment Author Assessment Qualifiers patient not sedated/intubated 09/20/2024 10:00 PM CDT Mykel Urbina RN Eye Opening 4-->(E4) spontaneous 09/20/2024 10:00 PM MACRINAT Mykel Urbina RN Verbal Response 5-->(V5) oriented 09/20/2024 10: 00 PM MACRINAT Mykel Urbina RN Best Motor Response 6-->(M6) obeys commands 05/2024 10:00 PM Mykel Araujo RN Sum Score 15 09/20/2024 10:00 PM CDT Mykel Urbina RN * Question Answer Date of Assessment Author AUDIT-C Score 0 09/20/2024 5:12 AM MACRINAT Booker Wade RN Q1: How often do you have a drink containing alcohol? Never 09/20/2024 5:12 AM MACRINAT Booker Schaeffer RN Q2: How many drinks containing alcohol do you have on a typical day when you are drinking? Patient does not drink 09/20/2024 5:12 AM Booker Perez RN Q3: How often do you have six or more drinks on one occasion? Never 09/20/2024 5:12 AM MACRINAT Booker Schaeffer RN * Question Answer Date of Assessment Author Peripheral Neurovascular WDL WDL 09/20/2024 2 :15 AM MACRINAT Ava Thompson RN * Question Answer Date of Assessment Author Factors That Aggravate Pain activity 09/20/2024 5: 00 AM Booker Perez RN Pain Onset/Duration movement 09/20/2024 5:00 AM Booker Lara RN * Question Answer Date of Assessment Author Sensory Perception 4-->no impairment 09/20/2024 10:00 PM Mykel Araujo RN Friction and Shear 3-->no apparent problem 09/20/2024 10:00 PM Mykel Araujo RN Moisture 4-->rarely moist 09/20/2024 10:00 PM Mykel Araujo RN Guero Score 22 09/20/2024 10:00 PM Mykel Austin RN Nutrition 3-->adequate 09/20/2024 10:00 PM Mykel Austin RN Activity 4-->walks frequently 09/20/2024 10:00 PM Mykel Araujo RN Mobility 4-->no limitation 09/20/2024 10:00 PM Mykel Araujo RN * Question Answer Date of Assessment Author Height 67 09/20/2024 4:16 PM Anna Hobbs RN Weight 4160 09/20/2024 4:16 PM Anna Hobbs RN * Question Answer Date of Assessment Author In the last 12 months, was there a time when you were not able to pay the mortgage or rent on time? No 09/20/2024 4:37 AM Booker Perez RN How hard is it for you to pay for the very basics like food, housing, medical care, and heating? Not very hard 09/20/2024 4:37 AM Booker Perez RN In the past 12 months, has lack of transportation kept you from medical appointments or from getting medications? No 09/20/2024 4:37 AM Booker Perez RN In the past 12 months, has lack of transportation kept you from meetings, work, or from getting things needed for daily living? No 09/20/2024 4:37 AM Booker Perez RN Within the past 12 months, you worried that your food would run out before you got the money to buy more. Never true 09/20/2024 4:37 AM Ksenia Perez RN Within the past 12 months, the food you bought just didn't last and you didn't have money to get more. Never true 09/20/2024 4:37 AM Edison Perez RN * Vital Signs Question Answer Date of Assessment Author BP 124/80 09/20/2024 9:45 PM Allyssa Babcock Temp 97.8 09/20/2024 9:45 PM MACRINAT Allyssa Mccrary SpO2 98 09/20/2024 9:45 PM MACRINAT Allyssa Mccrary BP Location Right Arm 09/20/2024 4:37 AM Booker Lopez RN BP Method Automatic 09/20/2024 4:37 AM Booker Lopez RN * Question Answer Date of Assessment Author P.O. 240 09/20/2024 11:00 PM Mykel Austin RN * Question Answer Date of Assessment Author HR per Pulse Ox 58 09/20/2024 2:40 AM MACRINAT Amrit Mattson RN * Anti-VTE: Venous Foot Pump (VFP) On Answer Date of Assessment Author N/A 09/20/2024 10:00 PM Maria Araujo RN * Question Answer Date of Assessment Author At any time in the past 12 m [place], were you homeless or living in a custodial (including now)? No 09/20/2024 4:37 AM Valerie Perez RN * Question Answer Date of Assessment Author Ambulation Distance (Feet) 10 09/20/2024 10: 00 PM MACRINAT Mykel Urbina RN * Question Answer Date of Assessment Author Pain Management Interventions biofeedback utilized 09/20/2024 5:00 AM Booker Perez RN (0-10) Pain Rating: Activity 6 09/20/2024 9:00 AM Anna Hobbs RN (0-10) Pain Rating: Rest 6 025 9:00 AM Anna Hobbs RN Nonverbal Indicators of Pain activity pattern change 09/20/2024 5:00 AM Booker Perez RN (0-10) Pain Goal/Acceptable Level 0 09/20/2024 9:00 AM Anna Hobbs RN Preferred Pain Scale number (Numeric Rat ing Pain Scale) 09/20/2024 10:00 PM MACRINAT Mykel Urbina RN Pain Side/Orientation bilateral 09/20/2024 5:00 AM Booker Perez RN Pain Description intermittent 09/20/2024 5:00 AM MACRINAT Booker Schaeffer RN Pain Location head 09/20/2024 5:00 AM Booker Perez RN * Question Answer Date of Assessment Author VTE Prevention/Management SCDs (sequential compression devices) off 09/20/2024 10:00 PM Mykel Araujo RN * Question Answer Date of Assessment Author Pulse 54 09/20/2024 9:57 PM CDT Rosemary Verdin Heart Rate Source Monitor 09/20/2024 9:57 PM CDT Rosemary Aleman * Question Answer Date of Assessment Author Pain-Patient Reports No pain 09/20/2024 9:00 AM Anna Cummings RN * Question Answer Date of Assessment Author Resp 16 09/20/2024 5:12 AM Booker Lopez RN documented as of this encounter Mental Status * QRS Interval (Sec) Answer Entry Date Author 0.1 09/20/2024 9:57 PM CDT Interface , Doc Flowsheet In * Question Answer Entry Date Author Assessment Qualifiers patient not sedated/intubated 09/20/2024 10:00 PM Mykel Araujo RN Eye Opening 4-->(E4) spontaneous 09/20/2024 10:00 PM Mykel Araujo RN Verbal Response 5-->(V5) oriented 09/20/2024 10: 00 PM Mykel Araujo RN Best Motor Response 6-->(M6) obeys commands 05/2024 10:00 PM Mykel Araujo RN Sum Score 15 09/20/2024 10:00 PM Mykel Araujo RN * Question Answer Entry Date Author AUDIT-C Score 0 09/20/2024 5:12 AM Booker Perez RN Q1: How often do you have a drink containing alcohol? Never 09/20/2024 5:12 AM Booker Perez RN Q2: How many drinks containing alcohol do you have on a typical day when you are drinking? Patient does not drink 09/20/2024 5:12 AM Booker Perez RN Q3: How often do you have six or more drinks on one occasion? Never 09/20/2024 5:12 AM Booker Perez RN * Question Answer Entry Date Author Peripheral Neurovascular WDL WDL 09/20/2024 2 :15 AM Ava Izquierdo RN * Question Answer Entry Date Author Factors That Aggravate Pain activity 09/20/2024 5: 00 AM Booker Perez RN Pain Onset/Duration movement 09/20/2024 5:00 AM Booker Lara RN * Question Answer Entry Date Author Sensory Perception 4-->no impairment 09/20/2024 10:00 PM Mykel Araujo RN Friction and Shear 3-->no apparent problem 09/20 10:00 PM Mykel Araujo RN Moisture 4-->rarely moist 09/20/2024 10:0 0 PM Mykel Araujo, ERNESTINA Guero Score 22 09/20/2024 10:00 PM Mykel Araujo RN Nutrition 3-->adequate 09/20/2024 10:00 PM Mykel Araujo RN Activity 4-->walks frequently 09/20/2024 10:00 PM Mykel Araujo RN Mobility 4-->no limitation 09/20/2024 10: 00 PM Mykel Araujo RN * Question Answer Entry Date Author Height 67 09/20/2024 4:16 PM Anna Hobbs RN Weight 4160 09/20/2024 4:16 PM Anna Hobbs RN * Question Answer Entry Date Author In the last 12 months, was there a time when you were not able to pay the mortgage or rent on time? No 09/20/2024 4:37 AM Booker Perez RN How hard is it for you to pa y for the very basics like food, housing, medical care, and heating? Not very hard 09/20/2024 4:37 AM Booker Perez RN In the past 12 months, has lack of transportation kept you from medical appointments or from getting medications? No 09/20/2024 4:37 AM Booker Perez RN In the past 12 months, has lack of transportation kept you from meetings, work, or from getting things needed for daily living? No 09/20/2024 4:37 AM Booker Perez RN Within the past 12 months, y ou worried that your food would run out before you got the money to buy more. Never true 09/20/2024 4:37 AM Booker Perez RN Within the past 12 months, t he food you bought just didn't last and you didn't have money to get more. Never true 09/20/2024 4:37 AM Booker Perez RN * Vital Signs Question Answer Entry Date Author BP 124/80 09/20/2024 9:45 PM MACRINAT Allyssa Mccrary 97.8 09/20/2024 9:45 PM CDT Allyssa Mccrary SpO2 98 09/20/2024 9:45 PM CDT Allyssa Mccrary BP Location Right Arm 09/20/2024 4:37 AM MACRINAT Booker Palmer RN BP Method Automatic 09/20/2024 4:37 AM CDT Booker Palmer RN * Question Answer Entry Date Author P.O. 240 09/20/2024 11:00 PM CDT Mykel Mcgowan RN * Question Answer Entry Date Author HR per Pulse Ox 58 09/20/2024 2:40 AM CDT Amrit Mattson RN * Anti-VTE: Venous Foot Pump (VFP) On Answer Entry Date Author N/A 09/20/2024 10:00 PM Maria Araujo RN * Question Answer Entry Date Author At any time in the past 12 m [place], were you homeless or living in a custodial (including now)? No 09/20/2024 4:37 AM MACRINAT Valerie Schaeffer RN * Question Answer Entry Date Author Ambulation Distance (Feet) 10 09/20/2024 10: 00 PM Mykel Araujo RN * Question Answer Entry Date Author Pain Management Interventions biofeedback utilized 09/20/2024 5:00 AM Booker Perez RN (0-10) Pain Rating: Activity 6 09/20/2024 9:00 AM Anna Hobbs RN (0-10) Pain Rating: Rest 6 025 9:00 AM Anna Hobbs RN Nonverbal Indicators of Pain activity pattern change 09/20/2024 5:00 AM Booker Perez RN (0-10) Pain Goal/Acceptable Level 0 09/20/2024 9:00 AM Anna Hobbs RN Preferred Pain Scale number (Numeric Rat ing Pain Scale) 09/20/2024 10:00 PM Mykel Araujo RN Pain Side/Orientation bilateral 09/20/2024 5:00 AM CDT Booker Schaeffer RN Pain Description intermittent 09/20/2024 5:00 AM MACRINAT Booker Schaeffer RN Pain Location head 09/20/2024 5:00 AM CDT Booker Schaeffer RN * Question Answer Entry Date Author VTE Prevention/Management SCDs (sequential compression devices) off 09/20/2024 10:00 PM CDT Mykel Urbina RN * Question Answer Entry Date Author Pulse 54 09/20/2024 9:57 PM CDT Rosemary Verdin Heart Rate Source Monitor 09/20/2024 9:57 PM CDT Rosemary Aleman * Question Answer Entry Date Author Pain-Patient Reports No pain 09/20/2024 9:00 AM C Anna Arredondo RN * Question Answer Entry Date Author Resp 16 09/20/2024 5:12 AM CDT Booker Palmer RN documented in this encounter Miscellaneous Notes * Telephone Encounter - Fam Murrell CMA - 09/18/2024 10:48 AM CDT Gave patient information for latter day * Telephone Encounter - Lina Tamayo - 09/17/2024 2:59 PM CDT Copied from [facility] #[id number]. Topic: Appointment - CM >> Sep 17, 2024 2:58 PM Lina Arndt wrote: BREANNA KANG called to schedule a referral. documented in this encounter Plan of Treatment Not on file documented as of this encounter Visit Diagnoses Not on filedocumented in this encounter Care Teams Poultry Boner Relationship Specialty Start Date End Date Ramiro Wheeler MD [address] [place] [address] PCP - General Family Medicine 05/31/24 documented as of this encounter
--- OUTSIDE RECORDS SUMMARY | 2025-04-15 08:51 | XMS_ITS | Encounter Summary ---
Author Organization [facility] Address [address] [place] [address] Care Team Providers Care Portfolio Specialist Name Role Phone Ramiro Wheeler MD Primary Care Provider [phone] Encounter Details Date Type Department Care Team (Latest Contact Info) Description 09/17/2024 Transcribe Orders [facility] 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 No 09/20/2024 In the last 12 months, was t here a time when you were not able to pay the mortgage or rent on time? No 09/20/2024 Number of Times Moved in the Last Year Not on fi le 09/20/2024 Comments No Sex and Gender Information Value Date Recorded Sex Assigned at Not on file Legal Sex Female 11:32 PM SET UP PERSON Gender Identity Not on file Sexual Orientation [...] Response 5-->(V5) oriented 09/20/2024 10: 00 PM CDT Mykel Urbina RN Best Motor Response 6-->(M6) [...] getting medications? No 09/20/2024 4:37 AM Booker ePrez RN In the past 12 months, has [...] any time in the past 12 m [facility], were you homeless or living in a longterm (including now)? No 09/20/2024 4:37 AM MACRINAT [...] RN Pain Description intermittent 09/20/2024 5:00 AM Booker Perez RN Pain Location head 09/20/2024 5:00 AM Booker Perez RN * Question Answer Date of Assessment Author VTE Prevention/Management SCDs (sequential compression devices) off 09/20/2024 10:00 PM Mykel Araujo RN * Anti-VTE: Pneumatic Compressors On Answer Date of Assessment Author N/A 09/20/2024 10:00 PM Maria Araujo, RN * Anti-VTE: Anti-Embolism Stockings On Answer [...] Qualifiers patient not sedated/intubated 09/20/2024 10:00 PM MACRINAT Mykel Urbina RN Eye Opening 4-->(E4) spontaneous 09/20/2024 10:00 PM CDT Mykel Urbina RN Verbal Response 5-->(V5) oriented 09/20/2024 10: 00 PM MACRINAT Mykel Urbina RN Best Motor Response 6-->(M6) obeys commands 05/2024 10:00 PM Mykel Araujo RN Sum Score 15 09/20/2024 10:00 PM CDT Mykel Urbina RN * Question Answer Date of Assessment Author AUDIT-C Score 0 09/20/2024 5:12 AM CDT Booker Wade RN Q1: How often do you have a drink containing alcohol? Never 09/20/2024 5:12 AM MACRINAT Booker Schaeffer RN Q2: How many drinks containing alcohol do you have on a typical day when you are drinking? Patient does not drink 09/20/2024 5:12 AM MACRINAT Booker Schaeffer RN Q3: How often do you have six or more drinks on one occasion? Never 09/20/2024 5:12 AM Booker Perez RN * Question Answer Date of Assessment Author Peripheral Neurovascular WDL WDL 09/20/2024 2 :15 AM Ava Izquierdo RN * Question Answer Date of Assessment [...] Assessment Author BP 124/80 09/20/2024 9:45 PM CDT Allyssa Mccrary Temp 97.8 09/20/2024 9:45 PM CDT Allyssa Mccrary SpO2 98 09/20/2024 9:45 PM CDT Allyssa Mccrary BP Location Right Arm 09/20/2024 4:37 AM Booker Lopez RN BP Method Automatic 09/20/2024 4:37 AM MACRINAT Booker Palmer RN * Question Answer Date of Assessment Author [address] 09/20/2024 11:00 PM CDMykel Henley RN * Question Answer Date of Assessment Author HR per Pulse Ox 58 09/20/2024 2:40 AM CDT Amrit Mattson RN * Anti-VTE: Venous Foot Pump (VFP) On Answer Date of Assessment Author N/A 09/20/2024 10:00 PM Maria Araujo RN * Question Answer Date of Assessment Author At any time in the past 12 m [facility], were you homeless or living in a longterm (including now)? No 09/20/2024 4:37 AM Valerie [...] RN Pain Description intermittent 09/20/2024 5:00 AM Booker Perez RN Pain Location head 09/20/2024 5:00 AM Booker Perez RN * Question Answer Date of Assessment Author VTE Prevention/Management SCDs (sequential compression devices) off 09/20/2024 10:00 PM Mykel Araujo RN * Question Answer Date of Assessment Author Pulse 54 09/20/2024 9:57 PM Rosemary Interiano Heart Rate Source Monitor 09/20/2024 9:57 PM MACRINAT Rosemary Aleman * Question Answer Date of [...] 4-->rarely moist 09/20/2024 10:0 0 PM Mykel Araujo RN Guero Score 22 [...] Date Author BP 124/80 09/20/2024 9:45 PM Allyssa Babcock Temp 97.8 09/20/2024 9:45 PM CDAllyssa Carrasco SpO2 98 09/20/2024 9:45 PM CDT Allyssa Mccrary BP Location Right Arm 09/20/2024 4:37 AM Booker Lopez RN BP Method Automatic 09/20/2024 4:37 AM MACRINAT Booker Palmer RN * Question Answer Entry Date Author [address]O. 240 09/20/2024 11:00 PM MACRINAT Mykel Mcgowan RN * Question Answer Entry Date Author HR per Pulse Ox 58 09/20/2024 2:40 AM CDT Amrit Mattson RN * Anti-VTE: Venous Foot Pump (VFP) On Answer Entry Date Author N/A 09/20/2024 10:00 PM Maria Araujo RN * Question Answer Entry Date Author At any time in the past 12 m [facility], were you homeless or living in a longterm (including now)? 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 OCT GCL - no thinning OU, Avg 84/84. 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 [address] PCP - General Family Medicine 05/31/24 documented as of this encounter
--- OUTSIDE RECORDS SUMMARY | 2025-04-15 08:52 | XMS_ITS | Encounter Summary ---
Author Organization [facility] Address [address] [place] [address] Care Team Providers Care Boilermaker Fitter Name Role Phone Asked, No Pcp Primary Care Provider Unavailabl e Reason for Visit * Reason Onset Date Comments Appointment 02/14/2025 Appointment: Ref erral scheduling Encounter Details Date Type Department Care Team (Late st Contact Info) Description 02/14/2025 Telephone [facility] [address] [address] [address] [place] [address] [place] [address] [place] [address] Social History Tobacco Use Types Packs/Day Years Used Date Smoking Tobacco: Never Smokeless Tobacco: Never Alcohol Use Standard Drinks/Week Comments Never 0 (1 standard drink = 0.6 oz pur e alcohol) PHQ-2 Answer Date Recorded PHQ-9 Total Score 0 01/25/2025 Hunger Vital Sign Answer Date Recorded Within the past 12 months, y ou worried that your food would run out before you got the money to buy more. Never true 01/13/20 25 Within the past 12 months, t he food you bought just didn't last and you didn't have money to get more. Never true 01/12/2025 Utilities Answer Date Recorded In the past 12 months has e electric, gas, oil, or water company threatened to shut off services in your home? No 01/12/2025 Living Situation Answer Date Recorded What is your living situation today? I have a [facility] place to live 01/12/[address] you li ve. Do you have problems with any of the following? CHOOSE ALL THAT APPLY None of the above 01/12/2025 Personal Safety Answer Date Recorded SDOH Safety Total Score 0 01/13/20 Transportation Needs Answer Date Record ed In the past 12 months, has l ack of reliable transportation kept you from medical appointments, meetings, work or from getting things needed for daily living? No 01/12/2025 IP Exclusion Answer Date Recorded Is the patient/family able/w illing to answer SDOH questions? No, patient refused 11/23/2024 Comments No Sex and Gender Information Value Date Recorded Sex Assigned at Female 11/02/2024 9:00 AM CDT Legal Sex Female 10:29 AM WIRE DRAWING SETTER Gender Identity Female 11/02/2024 9:00 AM CDT Sexual Orientation Not on file documented as of this encounter Miscellaneous Notes * Telephone Encounter - Janet Serrano - 02/14/2025 5:02 PM CDT Appointment Referral Scheduling Patient's Provider: Doug Tuttle MD Message Details: Please assist in scheduling an appointment. Date of last visit: Visit date not found Patient Symptomatic? yes Call-Back needed? yes If Yes, best call back number: [phone] Can we respond through [id number]? yes Ok to leave detailed message? yes Does the patient have an appointment? No Was waitlist offered? no Agent Name Janet Serrano documented in this encounter Plan of Treatment Upcoming Encounters Date Type Department Care Team (Late st Contact Info) Description 05/09/2025 8:30 AM WIRE DRAWING SETTER Office Visit Tiago Pineda Department of Neurology [address] [facility] [address] [place] [address] Lubna Luong PSY.D [address] [facility] [address] [place] [address] 05/27/2025 2:00 PM WIRE DRAWING SETTER Ancillary Procedure [facility] [address] [place] [address] [address] [place] [phone] [place] [address] [facility] [address] [place] [address] 05/27/2025 2:30 PM WIRE DRAWING SETTER Office Visit [facility] [address] [place] [address] 1 [address] [place] [phone] [place] [address] [facility] [address] [place] [address] 06/26/2025 3:40 PM WIRE DRAWING SETTER Office Visit [facility] Department of Neurology [address] [phone] Jose Lopez MD [address] [address] documented as of this encounter Visit Diagnoses Not on filedocumented in this encounter Care Teams Boilermaker Fitter Relationship Specialty Start Date End Date Asked, No Pcp [phone] PCP - General 01/21/25 documented as of this encounter
--- OUTSIDE RECORDS SUMMARY | 2025-04-15 08:52 | XMS_ITS | Encounter Summary ---
Author Organization [facility] Address [address] [place] [address] Care Team Providers Care Supervisor Knitting Name Role Phone Asked, No Pcp Primary Care Provider Unavailabl e Reason for Visit * Reason Onset Date Comments Appointment 01/02/2025 Appointment: New Patient Schedule request Encounter Details Date Type Department Care Team ([facility] Contact Info) Description 01/02/2025 Telephone [facility] Thomas Pineda Department of Neurology [address] [address] Lubna Luong PSY.D [address] [address] Social History Tobacco Use Types Packs/Day Years Used Date Smoking Tobacco: Never Smokeless Tobacco: Never Alcohol Use Standard Drinks/Week Comments Never 0 (1 standard drink = 0.6 oz pur e alcohol) PHQ-2 Answer Date Recorded PHQ-9 Total Score 0 11/23/2024 Hunger Vital Sign Answer Date Recorded Within the past 12 months, y ou worried that your food would run out before you got the money to buy more. Never true 09/28/19 25 Within the past 12 months, t he food you bought just didn't last and you didn't have money to get more. Never true 09/27/2024 Utilities Answer Date Recorded In the past 12 months has e electric, gas, oil, or water company threatened to shut off services in your home? No 09/27/2024 Living Situation Answer Date Recorded What is your living situation today? I have a [place] place to live 09/27/[address] you li ve. Do you have problems with any of the following? CHOOSE ALL THAT APPLY None of the above 09/27/2024 Personal Safety Answer Date Recorded SDOH Safety Total Score 4 09/28/19 25 Transportation Needs Answer Date Record ed In the past 12 months, has l ack of reliable transportation kept you from medical appointments, meetings, work or from getting things needed for daily living? No 09/27/2024 IP Exclusion Answer Date Recorded Is the patient/family able/w illing to answer SDOH questions? No, patient refused 11/23/2024 Comments No Sex and Gender Information Value Date Recorded Sex Assigned at Female 11/02/2024 9:00 AM CDT Legal Sex Female 10:29 AM SUPERVISOR INTELLIGENCE ANALYST Gender Identity Female 11/02/2024 9:00 AM CDT Sexual Orientation Not on file documented as of this encounter Miscellaneous Notes * Telephone Encounter - Rekha Hunt - 01/02/2025 9:29 AM CDT Appointment New Patient Schedule request Patient's Provider: Lubna Luong PSY.D Message Details: Patient is calling following up on new patient appt with Dr. Lubna Luong. Patient stated she spoke with someone from Dr. Luong and informed her she was waiting for a response from Dr. Luong in order to schedule patient, This is 3rd message sent on patients behalf. Please assist. Date of last visit: 12/14/2024 Patient Symptomatic? yes Call-Back needed? yes If Yes, best call back number: [phone] Can we respond through [employer]? yes Ok to leave detailed message? yes Does the patient have an appointment? No Was waitlist offered? no Agent Name Rekha Cadetos documented in this encounter Plan of Treatment Upcoming Encounters Date Type Department Care Team (Late st Contact Info) Description 05/09/2025 8:30 AM SUPERVISOR INTELLIGENCE ANALYST Office Visit [place] Elisabeth Pineda Department of Neurology [address] [facility] [address] [place] [address] Lubna Luong PSY.D [address] [facility] [address] [place] [address] 05/27/2025 2:00 PM SUPERVISOR INTELLIGENCE ANALYST Ancillary Procedure [facility] [address] [place] [address] [place] [phone] Elizabeth Ta MD [address] [place] [phone] 05/27/2025 2:30 PM SUPERVISOR INTELLIGENCE ANALYST Office Visit [facility] [address] [place] [address] [place] [phone] Elizabeth Ta MD [address] [place] [phone] 06/26/2025 3:40 PM SUPERVISOR INTELLIGENCE ANALYST Office Visit [facility] Department of Neurology [address] [phone] Jose Lopez MD [address] [address] documented as of this encounter Visit Diagnoses Not on filedocumented in this encounter Care Teams Supervisor Knitting Relationship Specialty Start Date End Date Asked, No Pcp [phone] PCP - General 01/21/25 documented as of this encounter
--- OUTSIDE RECORDS SUMMARY | 2025-04-15 08:52 | XMS_ITS | Encounter Summary ---
Author Organization [facility] Address [address] [place] [address] Care Team Providers Care Lead Loader Name Role Phone Asked, No Pcp Primary Care Provider Unavailabl e Reason for Visit * Reason Onset Date Comments General Inquiry/Return Call 08/07/2024 Encounter Details Date Type Department Care Team (Late Contact Info) Description 08/07/2024 Telephone [facility] [address] [facility] [address] [place] [phone] Abdiel Fiore MD [address] [place] [address] [place] [address] Social History Tobacco Use Types Packs/Day Years Used Date Smoking Tobacco: Never Smokeless Tobacco: Never Alcohol Use Standard Drinks/Week Comments Never 0 (1 standard drink = 0.6 oz pur e alcohol) PHQ-2 Answer Date Recorded PHQ-9 Total Score 0 07/16/2024 IP Exclusion Answer Date Recorded Is the patient/family able/w illing to answer SDOH questions? No, patient refused 07/08/2024 Comments No Sex and Gender Information Value Date Recorded Sex Assigned at Female 11/02/2024 9:00 AM CDT Legal Sex Female 10:29 AM EYEGLASS FITTER Gender Identity Female 11/02/2024 9:00 AM CDT Sexual Orientation Not on file documented as of this encounter Plan of Treatment Upcoming Encounters Date Type Department Care Team (Late Contact Info) Description 05/09/2025 8:30 AM EYEGLASS FITTER [facility] [address] [facility] [address] [place] [address] Lubna Luong PSY.D [address] [facility] [address] [place], [place] [phone] 05/27/2025 2:00 PM EYEGLASS FITTER Ancillary Procedure [facility] [address] [place] [address] [place] [phone] Elizabeth Ta MD [address] [place] [address] 05/27/2025 2:30 PM EYEGLASS FITTER Office Visit [facility] [address] [place] [phone] Elizabeth Ta MD [address] [place] [address] 06/26/2025 3:40 PM EYEGLASS FITTER Office Visit [facility] Department of Neurology [address] [phone] Jose Lopez MD [address] [address] documented as of this encounter Visit Diagnoses Not on filedocumented in this encounter Additional Health Concerns Infection Onset Date Last Indicated Resolved Time r/o Meningitis (D) 09/23/2024 09/23/2024 10:32 PM CDT documented as of this encounter Care Teams Lead Loader Relationship Specialty Start Date End Date Asked, No Pcp [id number] PCP - General 01/21/25 documented as of this encounter
--- OUTSIDE RECORDS SUMMARY | 2025-04-15 08:52 | XMS_ITS | Encounter Summary ---
Author Organization [facility] Address [address] [facility] [place] [address] Care Team Providers Care Finishing Machine Tender Name Role Phone Asked, No Pcp Primary Care Provider Unavailabl e Reason for Visit * Reason Onset Date Comments Med Refill 04/10/2025 Encounter Details Date Type Department Care Team (Late st Contact Info) Description 04/10/2025 Refill [facility] Department of Neurology [address] [facility], [facility] [address] [place] [phone] Jose Lopez MD [address] [facility] [address] [place] [address] Social History Tobacco Use Types Packs/Day Years [...] Recorded In the past 12 months has [facility] electric, gas, oil, or water company threatened to shut off services in your home? No 01/12/2025 Living Situation Answer Date Recorded What is your living situation today? I have a [employer] place to live 01/12/[address] you li ve. Do you have problems with any of the following? CHOOSE ALL THAT APPLY None of the above 01/12/2025 Personal Safety Answer Date Recorded SDOH Safety Total Score 0 01/13/20 25 Transportation Needs Answer Date Record ed [...] AM CDT Legal Sex Female 10:29 AM BUTTON SAWYER Gender Identity Female 11/02/2024 9:00 AM CDT Sexual Orientation Not on file documented as of this encounter Plan of Treatment Upcoming Encounters Date Type Department Care Team (Late st Contact Info) Description 05/09/2025 8:30 AM BUTTON SAWYER Office Visit [place] Elisabeth Pineda Department of Neurology [address] [place] [phone] Lubna Luong PSY.D [address] [place] [address] 05/27/2025 2:00 PM BUTTON SAWYER Ancillary Procedure [facility] [address] [place] [address] [place] [phone] Elizabeth Ta MD [address] [place] [phone] 05/27/2025 2:30 PM BUTTON SAWYER Office Visit [place] [facility] [address] [place] [address] [place] [phone] Elizabeth Ta MD [address] [place] [phone] 06/26/2025 3:40 PM BUTTON SAWYER Office Visit [facility] Department of Neurology [address], [facility] [address] [place] [address] Jose Lopez MD [address] [place] [address] documented as of this encounter Visit Diagnoses Not on filedocumented in this encounter Care Teams Finishing Machine Tender Relationship Specialty Start Date End Date Asked, No Pcp [id number] PCP - General 01/21/25 documented as of this encounter
--- OUTSIDE RECORDS SUMMARY | 2025-04-15 08:52 | XMS_ITS | Encounter Summary ---
Author Organization [facility] Address [address] [place] [address] Care Team Providers Care Technical Internship Name Role Phone Asked, No Pcp Primary Care Provider Unavailabl e Reason for Visit * Reason Onset Date Comments Appointment 04/09/2025 Appointment: Pro cedure/Injection scheduling Encounter Details Date Type Department Care Team ([facility] Contact Info) Description 04/09/2025 Telephone [facility] [address] [place] [phone] [place] [address] [facility] [address] [place] [address] Social History Tobacco Use Types Packs/Day Years [...] I have a [place]onnathan place to live 01/12/2025 Think about [...] AM CDT Legal Sex Female 10:29 AM CIGARETTE PACKER Gender Identity Female 11/02/2024 9:00 AM CDT Sexual Orientation Not on file documented as of this encounter Miscellaneous Notes * Telephone Encounter - Marialuisa Pollard RN - 04/09/2025 1:50 PM CST Patient scheduled RETTE PACKER * Telephone Encounter - Yumiko Sung - 04/09/2025 8:34 AM CST Appointment Procedure/Injection Scheduling Patient's Provider: Elizabeth Ta MD Message Details: Patient would like to reschedule her US and follow up appointment, she stated she started her cycle and prefers to do it a different date, can someone please call back and rescheduleher? Thank you! Date of last visit: 01/15/2025 Patient Symptomatic? no Call-Back needed? yes If Yes, best call back number: [phone] Can we respond through [employer]? yes Ok to leave detailed message? yes Does the patient have an appointment? No Was waitlist offered? no Agent Name Yumiko Ana Lilia RETTE PACKER documented in this encounter Plan of Treatment Upcoming Encounters Date Type Department Care Team (Late Contact Info) Description 05/09/2025 8:30 AM CIGARETTE PACKER Office Visit [facility] Thomas Pineda Department of Neurology [address] [facility] [address] [place] [address] Lubna Luong PSY.D [address] [facility] [address] [place] [address] 05/27/2025 2:00 PM CIGARETTE PACKER Ancillary Procedure [facility] [address] [place] [address] [place] [phone] Elizabeth Ta MD [address] [place] [address] 05/27/2025 2:30 PM CIGARETTE PACKER Office Visit [facility] [address] [place] [address] [place] [phone] Elizabeth Ta MD [address] [place] [address] 06/26/2025 3:40 PM CIGARETTE PACKER Office Visit [facility] Department of Neurology [address] [phone] Jose Lopez MD [address] [address] documented as of this encounter Visit Diagnoses Not on filedocumented in this encounter Care Teams Technical Internship Relationship Specialty Start Date End Date Asked, No Pcp [phone] PCP - General 01/21/25 documented as of this encounter
--- OUTSIDE RECORDS SUMMARY | 2025-04-15 08:52 | XMS_ITS | Encounter Summary ---
Author Organization [facility] Address [address] [place] [address] Care Team Providers Care An/Sqq 89(V)15 Sonar System Journeyman Name Role Phone Asked, No Pcp Primary Care Provider Unavailabl e Reason for Visit * Reason Onset Date Comments Appointment 12/12/2024 Appointment: Ref erral scheduling Encounter Details Date Type Department Care Team (Late st Contact Info) Description 12/12/2024 Telephone [facility] Thomas Pineda Department of Neurology [address] [place] [phone] Lazaro Cui, PhD [address] [address] Social History Tobacco Use Types [...] living situation today? I have a [facility] [place] place to live 09/27/2024 Think about the [...] AM CDT Legal Sex Female 10:29 AM HOTEL CLERK Gender Identity Female 11/02/2024 9:00 AM CDT Sexual Orientation Not on file documented as of this encounter Miscellaneous Notes * Telephone Encounter - Lety Fonseca - 12/12/2024 11:04 AM CDT Appointment Referral Scheduling Patient's Provider: Lazaro Cui, PhD Message Details: Good Morning , Can you please assist the following Patient with assistance with scheduling? Patient DX;781.99 (ICD-9-CM) - R29.90 (ICD-10-CM) - Multiple neurological symptoms Date of last visit: Visit date not found Patient Symptomatic? yes Call-Back needed? yes If Yes, best call back number: [phone] Can we respond through [employer]? no Ok to leave detailed message? no Does the patient have an appointment? No Was waitlist offered? no Agent Name Lety Fonseca documented in this encounter Plan of Treatment Upcoming Encounters Date Type Department Care Team (Late st Contact Info) Description 05/09/2025 8:30 AM HOTEL CLERK Office Visit [facility] Department of Neurology [address] [phone] Lubna Luong PSY.D [address] [place] [address] 05/27/2025 2:00 PM HOTEL CLERK Ancillary Procedure [facility] [address] [place] [address] 1 [address] [place] [phone] Elizabeth Ta MD [address] [place] [address] [address] [place] [address] 05/27/2025 2:30 PM HOTEL CLERK Office Visit [facility] [address] [place] [address] 1 [address] [place] [address] Elizabeth Ta MD [address] [place] [address] [address] [place], [place] [phone] 06/26/2025 3:40 PM HOTEL CLERK Office Visit [facility] Department of Neurology [address] [address] Jose Lopez MD [address] [address] documented as of this encounter Visit Diagnoses Not on filedocumented in this encounter Care Teams An/Sqq 89(V)15 Sonar System Journeyman Relationship Specialty Start Date End Date Asked, No Pcp [id number] PCP - General 01/21/25 documented as of this encounter
--- OUTSIDE RECORDS SUMMARY | 2025-04-15 08:52 | XMS_ITS | Encounter Summary ---
Author Organization [facility] Address [address] [facility] [place] [address] Care Team Providers Care Slotter Operator Name Role Phone Asked, No Pcp Primary Care Provider Unavailabl e Reason for Visit * Reason Onset Date Comments Appointment 12/11/2024 Appointment: New Patient Schedule request Encounter Details Date Type Department Care Team (Late st Contact Info) Description 12/11/2024 Telephone [facility] [place] [address] [phone] Janet Ghosh, PhD [phone] [place], [place] [id number] Social History Tobacco Use Types Packs/Day Years [...] your living situation today? I have a [facility] place to live 09/27/2024 Think about the [...] AM CDT Legal Sex Female 10:29 AM CUFF PRESSER Gender Identity Female 11/02/2024 9:00 AM CDT Sexual Orientation Not on file documented as of this encounter Miscellaneous Notes * Telephone Encounter - Hilda Martinez MA - 12/11/2024 3:33 PM CDT Explained to patient that Dr. Ghosh is currently only accepting referrals from the in house neurologist - Dr. Beauchamp, Dr. Bolanos, Dr. Willett. I am unable to schedule her for NeuroPsych eval unlessshe is seen by one of our Neurologist. * Telephone Encounter - Wolfgang Hewitt - 12/11/2024 2:57 PM CDT Appointment New Patient Schedule request Patient's Provider: Janet Ghosh, PhD Message Details: Pt is requesting a fish and wildlife scientific aid appt due to memory issues. Please assist, thanks. Date of last visit: Visit date not found Patient Symptomatic? yes Call-Back needed? yes If Yes, best call back number: [phone] Can we respond through [employer]? yes Ok to leave detailed message? yes Does the patient have an appointment? No Was waitlist offered? no Agent Name Wolfgang Marcelina documented in this encounter Plan of Treatment Upcoming Encounters Date Type Department Care Team (Late st Contact Info) Description 05/09/2025 8:30 AM CUFF PRESSER Office Visit [facility] Thomas Pineda Department of Neurology [address] [facility] [address] [place] [address] Lubna Luong PSY.D [address] [facility] [address] [place] [address] 05/27/2025 2:00 PM CUFF PRESSER Ancillary Procedure [facility] [address] [place] [address] [place] [phone] Elizabeth Ta MD [address] [place] [phone] 05/27/2025 2:30 PM CUFF PRESSER Office Visit [facility] [address] [place] [address] [place] [phone] Elizabeth Ta MD [address] [place] [phone] 06/26/2025 3:40 PM CUFF PRESSER Office Visit [facility] Department of Neurology [address] [phone] Jose Lopez MD [address] [address] documented as of this encounter Visit Diagnoses Not on filedocumented in this encounter Care Teams Slotter Operator Relationship Specialty Start Date End Date Asked, No Pcp [id number] PCP - General 01/21/25 documented as of this encounter
--- OUTSIDE RECORDS SUMMARY | 2025-04-15 08:52 | XMS_ITS | Patient Health Record ---
Author Organization [facility] Address [address] [address] Care Team Providers Care Pilot Plant Operator Helper Name Role Phone Migration, Provider Unavailable Unavailable Results Component Value Reference Range Notes COMPREHENSIVE METABOLIC PANE L Reviewed date: Interpretation: Performing Lab: Notes/Report: ALBUMIN 4.77785 G/DL ALKALINE PHOSPHATASE 70.76321 U/L ALT 19.01385 U/L AST 21.55142 U/L BILIRUBIN, TOTAL 0.44981 MG/DL BUN 16.59939 MG/DL CALC A/G RATIO 1.98190 RATIO CALC BUN/CREAT 16.63413 RATIO CALC GLOBULIN 2.12452 G/DL CALCIUM 9.44450 MG/DL CARBON DIOXIDE 16.76089 MEQ/L CHLORIDE 109.02314 MEQ/L CREATININE 1.73969 MG/DL eGFR (2020 CKD-EPI) 79.15021 ML/MIN/1.73 GLUCOSE 85.88753 MG/DL POTASSIUM 4.22832 MEQ/L PROTEIN, TOTAL 7.12178 G/DL SODIUM 138.53901 MEQ/L Reason For Referral No Information Medications Medication SIG (Take, Route, Frequency, Duration) Notes Start Date End Date Status Mounjaro subcutaneous *Pick strength-f orm from Medispan for eRX* Active acetaZOLAMIDE oral *Pick strength-f orm from Medispan for eRX* Active Vital Signs Heart Rate 88 /min 09/10/2024 Temperature 99.3 degrees Fahrenheit 09/10/2024 Respiratory Rate 16 /min 09/10/2024 Oximetry 100 % 09/10/2024 Blood pressure diastolic 90 mm Hg 09/10/2024 Blood pressure systolic 148 mm Hg 09/10/2024 Encounters Encounter Location Date Provider Diagnosis [facility] [address] [place] [address] 09/10/2024 Provider Migration [facility] [address] [place] [address] 02/09/2025 Provider Migration [facility] [address] [place] [address] 02/10/2025 Provider Migration Plan Of Treatment No Information
--- OUTSIDE RECORDS SUMMARY | 2025-04-15 08:52 | XMS_ITS | Encounter Summary ---
Author Organization [facility] Address [address] [place] [address] Care Team Providers Care Infantry Weapons Crewmember Name Role Phone Asked, No Pcp Primary Care Provider Unavailabl e Encounter Details Date Type Department Care Team (Late st Contact Info) Description 09/22/2024 Ophth Exam [facility] [address] [address] German Machado MD [address] [address] Social History Tobacco Use Types Packs/Day Years Used Date Smoking Tobacco: Never Smokeless Tobacco: Never Alcohol Use Standard Drinks/Week Comments Never 0 (1 standard drink = 0.6 oz pur e alcohol) PHQ-2 Answer Date Recorded PHQ-9 Total Score 0 09/26/2024 Hunger Vital Sign Answer Date Recorded Within the past 12 months, y ou worried that your food would run out before you got the money to buy more. Never true 09/23/19 25 Within the past 12 months, t he food you bought just didn't last and you didn't have money to get more. Never true 09/22/2024 Utilities Answer Date Recorded In the past 12 months has th e electric, gas, oil, or water company threatened to shut off services in your home? No 09/22/2024 Living Situation Answer Date Recorded What is your living situation today? I have a [facility] place to live 09/22/[address] you li ve. Do you have problems with any of the following? CHOOSE ALL THAT APPLY None of the above 09/22/2024 Personal Safety Answer Date Recorded SDOH Safety Total Score 4 09/23/19 25 Transportation Needs Answer Date Record ed In the past 12 months, has l ack of reliable transportation kept you from medical appointments, meetings, work or from getting things needed for daily living? No 09/22/2024 IP Exclusion Answer Date Recorded Is the patient/family able/w illing to answer SDOH questions? No, patient refused 07/08/2024 Comments No Sex and Gender Information Value Date Recorded Sex Assigned at Female 11/02/2024 9:00 AM CDT Legal Sex Female 10:29 AM ORCHID HAND Gender Identity Female 11/02/2024 9:00 AM CDT Sexual Orientation Not on file documented as of this encounter Plan of Treatment Upcoming Encounters Date Type Department Care Team (Late st Contact Info) Description 05/09/2025 8:30 AM ORCHID HAND Office Visit [place] [facility]abeth Pineda Department of Neurology [address] [phone] Lubna Luong PSY.D [address] [phone] 05/27/2025 2:00 PM ORCHID HAND Ancillary Procedure [facility] [address] [place] [address] [place] [phone] Elizabeth Ta MD [address] [place] [phone] 05/27/2025 2:30 PM ORCHID HAND Office Visit [place] [facility] [address] [place] [address] [place] [phone] Elizabeth Ta MD [address] [place] [address] 06/26/2025 3:40 PM ORCHID HAND Office Visit [facility] Department of Neurology [address] [place] [phone] Jose Lopez MD [address] [place] [address] documented as of this encounter Visit Diagnoses Not on filedocumented in this encounter Additional Health Concerns Infection Onset Date Last Indicated Resolved Time r/o Meningitis (D) 09/23/2024 09/23/2024 10:32 PM CDT documented as of this encounter Care Teams Infantry Weapons Crewmember Relationship Specialty Start Date End Date Asked, No Pcp [phone] PCP - General 01/21/25 documented as of this encounter
--- OUTSIDE RECORDS SUMMARY | 2025-04-15 08:52 | XMS_ITS | Encounter Summary ---
Author Organization [facility] Address [address] [address] Care Team Providers Care Inductor Tester Name Role Phone Ramiro Wheeler MD Primary Care Provider [phone] Encounter Details Date Type Department Care Team (Late st Contact Info) Description 06/15/2024 EpicOnHand Encounter [facility] Medicine [place] [address] [place] [address] Amilcar Bennett, DO [address] [place] [address] Social History Tobacco Use Types Packs/Day Years Used Date Smoking Tobacco: Never Smokeless Tobacco: Never Alcohol Use Standard Drinks/Week Comments Never 0 (1 standard drink = 0.6 oz pur e alcohol) [facility] Utilities Answer Date Recorded In the past 12 months has [employer], [employer], oil, or water [employer] threatened to shut off services in your home? No 06/14/2024 AUDIT-C Answer Date Recorded Q1: How often do you have a drink containing alc ohol? Monthly or less 06/14/2024 Q2: How many drinks containi ng alcohol do you have on a typical day when you are drinking? 1 or 2 06/14/2024 Q3: How often do you have si x or more drinks on one occasion? Never 06/14/2024 Overall Financial Resource Strain (CARDIA) Answe r Date Recorded How hard is it for you to pa y for the very basics like food, housing, medical care, and heating? Not hard at all 06/14/2024 Depression Answer Date Recorded PHQ2 Screening score 0 06/14/2024 Last PHQ-9 Score Not on file 06/14/2024 Interpersonal Safety Answer Date Record ed Feels UN-safe at Home or Work/School no 06/14/2024 Verbal Abuse Denies 06/14/2024 Physical Signs of Abuse Present no 06/14/2024 Food Insecurity Answer Date Recorded Within the past 12 months, y ou worried that your food would run out before you got the money to buy more. Never true 06/14/19 25 Within the past 12 months, t he food you bought just didn't last and you didn't have money to get more. Never true 06/14/2024 Transportation Answer Date Recorded In the past 12 months, has l ack of transportation kept you from medical appointments or from getting medications? No 05/24 In the past 12 months, has l ack of transportation kept you from meetings, work, or from getting things needed for daily living? No 06/14/2024 Housing Stability Answer Date Recorded At any time in the past 12 m [facility], were you homeless or living in a snf (including now)? No 06/14/2024 In the last 12 months, was t here a time when you were not able to pay the mortgage or rent on time? No 06/14/2024 Number of Times Moved in the Last Year Not on fi le 06/14/2024 Comments No Sex and Gender Information Value Date Recorded Sex Assigned at Not on file Legal Sex Female 11:32 PM FIBERGLASS AUTOBODY REPAIRER Gender Identity Not on file Sexual Orientation Not on file documented as of this encounter Plan of Treatment Not on file documented as of this encounter Visit Diagnoses Not on filedocumented in this encounter Additional Health Concerns Infection Onset Date Last Indicated Resolved Time Bacterial Meningitis suspected 06/14/2024 06/14/2024 06/24/2024 3:07 AM FIBERGLASS AUTOBODY REPAIRER GI Infection Suspected 09/10/2024 09/11/202409/11 1:35 AM CDT documented as of this encounter Care Teams Inductor Tester Relationship Specialty Start Date End Date Rmairo Wheeler MD [address] [facility] [address] [place] [address] PCP - General Family Medicine 05/31/24 documented as of this encounter
--- OUTSIDE RECORDS SUMMARY | 2025-04-15 08:52 | XMS_ITS | Clinical Summary ---
Author Organization [facility] Address [address] [place] [address] Care Team Providers Care Locker Room Supervisor Name Role Phone Asked, No Pcp Primary Care Provider Unavailabl e Allergies Active Allergy Reactions Criticality Noted Date Comments Prochlorperazine Other (See Comments) 5 EPS Penicillins Rash,PENFAST 4+ Low 06/06/2024 Metoclopramide Hcl Altered Mental Status 2024 Tetracycline Hypertension 01/03/2025 Medications rimegepant (NURTEC ODT) 75 mg tablet,disintegra tingIndications:I ntractable migraine without aura and without status migrainosus Dissolve 1 tablet (75 mg total) on the tongue every other day. 16 tablet 3 5 Active MAGNESIUM CITRATE ORAL Take 1 chewable tablet(s) by mouth daily. Active cholecalciferol, vitD3,/vit K2 (VITAMIN D3-VITAMIN K2 ORAL) Take 1 Dose by mouth daily. Active OMEGA-3 FATTY ACIDS ORAL Take 1 Dose by mouth daily. Active acetaminophen-cod eine (TYLENOL WITH CODEINE #3) 300-30 mg per tabletIndications :acute pain Take 1 tablet by mouth every 6 (six) hours as needed for moderate pain .acute pain. 12 tablet 5 Active hydrOXYzine HCL (ATARAX) 25 MG tablet Take 1 tablet (25 mg total) by mouth every 6 (six) hours as needed for anxiety. 20 tablet 5 Active acetaZOLAMIDE (DIAMOX) 250 MG tabletIndications :Pressure in head,Chiari malformation type I (HCC) Take 2 tablets (500 mg total) by mouth 3 (three) times a day. 180 tablet 3 Active sodium bicarbonate 325 mg tabletIndications :Pressure in head,Chiari malformation type I (HCC) Take 2 tablets (650 mg total) by mouth 2 (two) times a day. 180 tablet 1 Active acetaZOLAMIDE (DIAMOX) 500 mg capsule Take 2 capsules (1,000 mg total) by mouth 2 (two) times a day. 120 capsule Active Active Problems Problem Noted Date Diagnosed Date Chiari syndrome 01/12/2025 Intracranial hypertension 01/12/2025 IIH (idiopathic intracranial hypertension) 01/12 Syncope, near 10/02/2024 Generalized headache 09/26/2024 Nonintractable headache, uns pecified chronicity pattern, unspecified headache type 09/22/2024 Syncope, unspecified syncope type 07/08/2024 Encounters Date Type Department Care Team Description 04/10/2025 Refill [facility] Department of Neurology [address] [facility], [facility] [address] [place] [address] Jose Lopez MD 04/09/2025 Telephone [facility] [address] [facility] [address] [place] [address] Elizabeth Ta MD 03/06/2025 Results Follow-Up [facility] [address] [facility] [address] [place] [address] Abdiel Fiore MD General Sleep Study ( Sleep Centers) 02/26/2025 Telephone [facility] [address] [place] [address] Annamarie Jackson 02/25/2025 8:00 AM CDT - 02/25/2025 3:55 PM CDT Hospital Encounter [facility] [address] [place] [address] Abdiel Fiore MD Excessive daytime sleepiness; Sleep-related hallucinations Discharge Disposition: Discharge Home 02/24/2025 8:00 PM CDT - 02/25/2025 7:11 AM CDT Hospital Encounter [facility] [address] [place] [address] Abdiel Fiore MD Excessive daytime sleepiness; Sleep-related hallucinations Discharge Disposition: Discharge Home 02/20/2025 Telephone [facility] [address] [facility] [address] [place] [address] Jany Dave MA 02/15/2025 Telephone [facility] [address] [place] [address] [address] [place] [phone] Grisel Hunter MD 02/14/2025 1:40 PM CDT Office Visit [facility] Department of Neurology [address] [phone] Jose Lopez MD Pressure in head (Primary Dx); Dizziness; Chiari malformation type I (HCC); Iron deficiency; Memory loss; Renal dysfunction 02/14/2025 Telephone [facility] [address] [place] [phone] Doug Tuttle MD 02/05/2025 Telephone [facility] [address] [place] [address] Annam[address] Jackson 01/25/2025 3:29 AM CDT - 01/25/2025 6:52 AM CDT Emergency [facility] Main Emergency Department [address] [place] [phone] Concepción Prasad MD Right leg pain (Primary Dx) Discharge Disposition: Discharge Home 01/20/2025 11:08 PM CDT - 01/21/2025 3:51 AM CDT Emergency [facility] Main Emergency Department [address] [place] [phone] Quang Humphrey MD Ventricular shunt in place (Primary Dx); History of Chiari malformation; IIH (idiopathic intracranial hypertension); Palpitations; Panic attack Discharge Disposition: Discharge Home 01/19/2025 4:47 PM CDT - 01/19/2025 10:41 PM CDT Emergency [facility] [address] [place] [address] Drew Hunter II, MD Muscle weakness (Primary Dx) Discharge Disposition: Discharge Home 01/15/2025 Telephone [facility] [address] [place] [address] Elizabeth Ta MD 01/14/2025 3:41 PM CDT Anesthesia Event [facility] [place] [address] [place] [address] Ricardo Gudino MD Maharaj, Margret Cabrera, PULL TAB DEALER 01/14/2025 1:50 PM CDT - 01/14/2025 5:35 PM CDT Surgery [facility] [place] [address] [place] [address] Param Perdue MD PLACEMENT, VENTRICULAR DRAIN- RIGHT 01/12/2025 5:27 AM CDT - 01/16/2025 2:43 PM CDT Hospital Encounter [facility] Neurology ICU 11th Floor [address] [place] [address] Concepción Prasad MD Saldana, DO Nate Staley Martina C., MD Ellison, MD Barbi Solis Matt R., MD II (idiopathic intracranial hypertension) (Primary Dx); Chiari syndrome (HCC); Nonintractable headache, unspecified chronicity pattern, unspecified headache type; Intracranial hypertension; Generalized headache Discharge Disposition: Discharge Home from Last 3 Months Family History Medical History Relation Name Comments No Known Problems Father Hypertension Maternal Grandmother Stroke Maternal Grandmother Cancer Mother Hypertension Mother Cancer Paternal Grandmother Krystle Betancur Relation Name Status Comments Father Maternal Grandmother Mother Paternal Grandmother Krystle Betancur Alive Social History Tobacco Use Types Packs/Day Years Used Date Smoking Tobacco: Never Smokeless Tobacco: Never Tobacco Cessation:Counseling Given: No Alcohol Use Standard Drinks/Week Comments Never 0 [...] your living situation today? I have a [facility] place to live 01/12/2025 Think about the [...] AM CDT Legal Sex Female 10:29 AM CLOCK REPAIR TECHNICIAN Gender Identity Female 11/02/2024 9:00 AM CDT Sexual Orientation Not on file Last Filed Vital Signs Vital Sign Reading Time Taken Comments Blood Pressure 102/73 02/14/2025 1:42 PM CDT Pulse 81 02/14/2025 1:42 PM CDT Temperature 36.6 C (97.8 F) 01/25/2025 3:22 AM CDT Respiratory Rate 17 01/25/2025 3:22 AM CDT Oxygen Saturation 99% 02/14/2025 1:42 PM CDT Inhaled Oxygen Concentration - - Weight 110 kg (242 lb) 02/14/2025 1:42 PM CDT Height 170.2 cm (5' 7 ) 02/14/2025 1:42 PM CDT Body Mass Index 37.9 02/14/2025 1:42 PM CDT Plan of Treatment Upcoming Encounters Date Type Department Care Team (Late st Contact Info) Description 05/09/2025 8:30 AM CLOCK REPAIR TECHNICIAN Office Visit [facility] Thomas Pineda Department of Neurology [address] [facility] [address] [place] [address] Lubna Luong PSY.Lee [address] [facility] [address] [place], [place] [phone] 05/27/2025 2:00 PM CLOCK REPAIR TECHNICIAN Ancillary Procedure [facility] [address] [place] [address] [place] [phone] Elizabeth Ta MD [address] [place] [phone] 05/27/2025 2:30 PM CLOCK REPAIR TECHNICIAN Office Visit [facility] [address] [place] [address] [place] [phone] Elizabeth Ta MD [address] [place] [phone] 06/26/2025 3:40 PM CLOCK REPAIR TECHNICIAN Office Visit [facility] Department of Neurology [address] [address] Jose Lopez MD [address] [phone] Health Maintenance Due Date Last Done Comments HEPATITIS C SCREENING 2015 Pneumococcal Vaccine: Pediat rics (0 to 5 Years) and At-Risk Patients (6 to 49 Years) (1 of 2 - PCV) 2016 COVID-19 VACCINE ( - 2024-2 6 season) 2025 INFLUENZA VACCINE (#1) 2025 CERVICAL CANCER SCREENING 01/04/2028 01/03/2025 MENINGOCOCCAL B SERIES VACCINE Aged Out No longer eligible based on patient's age to complete this topic Medical Devices Implanted Type Area Headwaitress Device Identifier Shelf Expiration Date Model / Serial / Lot Ti Matrixneuro Screw Self-Drilling 4mm - [id number] Implanted:Qty: 4 on 01/14/2025 at [facility] IPM IMPLANT DEVICES N/A: N/A [employer] [id number] / / Cover Bur Hol Mtrxnuro For Shunt Ti Bl 17mm - [id number] Implanted:Qty: 1 on 01/14/2025 at [facility] Spinal Implants N/A: N/A SYNTHES MAXIOFACIAL IMPLANT [id number] / / Procedures Procedure Name Priority Date/Time Associated Diagnosis Comments MULTIPLE SLEEP LATENCY TEST WITHOUT CPAP Routine 02/28/2025 2:46 PM CDT Excessive daytime sleepiness Sleep-related hallucinations GENERAL SLEEP STUDY Routine 02/28/2025 2 :42 PM CDT Excessive daytime sleepiness Sleep-related hallucinations US DUPLEX VENOUS LOWER EXTREMITY RIGHT STAT 01/25/2025 6:36 AM CDT ESTIMATED GFR STAT 01/21/2025 1:55 AM CDT D-DIMER STAT 01/21/2025 1:55 AM CDT HCG QUALITATIVE, SERUM SCREEN STAT 01/21/2025 1:55 AM CDT TSH WITH REFLEX TO FREE T4 STAT 01/21/2025 1:55 AM CDT COMPREHENSIVE METABOLIC PANEL STAT 01/21/2025 1:55 AM CDT CBC WITH PLATELET AND DIFFERENTIAL Routine 01/21/2025 1:55 AM CDT ECG 12-LEAD STAT 01/20/2025 11:33 PM CDT URINALYSIS SCREEN AND MICROSCOPY, WITH REFLEX TO CULTURE Routine 01/19/2025 8:22 PM CDT URINE CULTURE Routine 01/19/2025 8:22 PM CDT ESTIMATED GFR STAT 01/19/2025 5:19 PM CDT HCG QUALITATIVE, SERUM SCREEN STAT 01/19/2025 5:19 PM CDT NT-PROBNP STAT 01/19/2025 5:19 PM CDT TROPONIN T STAT 01/19/2025 5:19 PM CDT COMPREHENSIVE METABOLIC PANEL STAT 01/19/2025 5:19 PM CDT CBC WITH PLATELET AND DIFFERENTIAL STAT 01/19/2025 5:19 PM CDT ECG 12-LEAD STAT 01/19/2025 4:44 PM CDT ECG ED PRELIMINARY INTERPRETATION Routine 01/19/2025 4:44 PM CDT ESTIMATED GFR Routine 01/16/2025 12:47 AM CDT IONIZED CALCIUM Routine 01/16/2025 12:47 AM CDT VANCOMYCIN LEVEL, RANDOM Routine 01/16/2025 12:47 AM CDT CBC WITH PLATELET AND DIFFERENTIAL Routine 01/16/2025 12:47 AM CDT BASIC METABOLIC PANEL Routine 01/16/2025 12:47 AM CDT MAGNESIUM LEVEL Routine 01/16/2025 12:47 AM CDT PHOSPHORUS LEVEL Routine 01/16/2025 12:47 AM CDT HEPATIC FUNCTION PANEL Routine 01/16/2025 12:47 AM CDT POC GLUCOSE Routine 01/15/2025 8:12 PM CDT ESTIMATED GFR Routine 01/15/2025 3:39 PM CDT BASIC METABOLIC PANEL Routine 01/15/2025 3:39 PM CDT POC GLUCOSE Routine 01/15/2025 7:50 AM CDT ESTIMATED GFR Routine 01/15/2025 12:56 AM CDT IONIZED CALCIUM Routine 01/15/2025 12:56 AM CDT CBC WITH PLATELET AND DIFFERENTIAL Routine 01/15/2025 12:56 AM CDT BASIC METABOLIC PANEL Routine 01/15/2025 12:56 AM CDT MAGNESIUM LEVEL Routine 01/15/2025 12:56 AM CDT PHOSPHORUS LEVEL Routine 01/15/2025 12:56 AM CDT HEPATIC FUNCTION PANEL Routine 01/15/2025 12:56 AM CDT POC GLUCOSE Routine 01/15/2025 12:40 AM CDT POC GLUCOSE Routine 01/14/2025 7:[address] HEAD WO CONTRAST STAT 01/14/2025 6 [address] AN ELECTIVE ENDOTRACHEAL AIRWAY Routine 01/14/2025 3:51 PM CDT PLACEMENT, VENTRICULAR SHUNT 01/14/2025 3:40 PM CDT IIH (idiopathic intracranial hypertension) Special Needs [employer] Don[employer]- FORBES POC GLUCOSE Routine 01/14/2025 2:24 PM CDT HCG QUALITATIVE, URINE SCREEN STAT 01/14/2025 12:34 PM CDT ESTIMATED GFR Routine 01/14/2025 5:04 AM CDT CBC WITH PLATELET AND DIFFERENTIAL Routine 01/14/2025 5:04 AM CDT BASIC METABOLIC PANEL Routine 01/14/2025 5:04 AM CDT MAGNESIUM LEVEL Routine 01/14/2025 5:04 AM CDT PHOSPHORUS LEVEL Routine 01/14/2025 5:04 AM CDT HEPATIC FUNCTION PANEL Routine 01/14/2025 5:[address] STEALTH BRAIN WO CONTRAST STAT 01/13/2025 5:07 PM CDT TYPE AND SCREEN Routine 01/13/2025 2:04 PM CDT PARTIAL THROMBOPLASTIN TIME (PTT) Routine 01/13/2025 2:04 PM CDT PROTHROMBIN TIME WITH INR Routine 01/13/2025 2:04 PM CDT ESTIMATED GFR Routine 01/13/2025 4:13 AM CDT HEPATIC FUNCTION PANEL Routine 01/13/2025 4:13 AM CDT CBC WITH PLATELET AND DIFFERENTIAL Routine 01/13/2025 4:13 AM CDT PHOSPHORUS LEVEL Routine 01/13/2025 4:13 AM CDT MAGNESIUM LEVEL Routine 01/13/2025 4:13 AM CDT BASIC METABOLIC PANEL Routine 01/13/2025 4:13 AM CDT GYNECOLOGIC PAP TEST (IMAGE-GUIDED), LIQUID-BASED PREPARATION AND HUMAN PAPILLOMAVIRUS (HPV) (APTIMA ) WITH REFLEX TO HPV GENOTYPES 16 AND 18,45 Routine 01/03/2025 4:31 PM CDT Cervical cancer screening from Last 3 Months or Most Recently Relevant to Health Maintenance Results * Multiple Sleep Latency Test (MSLT) (02/28/2025 2:46 PM CDT) Abdiel Fiore MD SLEEP CENTER ORDERABLES Final Re sult * General Sleep Study ( Sleep Centers) (02/28/2025 2:42 PM CDT) [facility] ORDER[facility]LES Final Re sult * US DUPLEX VENOUS LOWER EXTREMITY RIGHT (01/25/2025 6:36 AM CDT) Anatomical Region Laterality Modality Lower Extremities, Vascular Ultr asound 01/25/2025 5:36 AM CDT Narrative 01/25/2025 10:05 AM CDT Vascular Ultrasound Laboratory Lower Extremity Venous Report [address] [place] [address] Pat.Name: BREANNA BETANCUR Pat.ID: [id number] .Date: 01/25/2025 Refer.MD: CONCEPCIÓN PRASAD MD Exam Time: 5:36:00 AM Study Type:LE Venous Height: 67in Weight: 240lb BSA: 2.19 m2 Age: 2 1995,29Y Sex: FEMALE Sonogrphr: ZACH Wise Pat. Stat.:Inpatient Room: ED Tape Vol: , CPT - 4: 86395 Echo Event ID:[id number] Order ID: [id number] Reason for Study:leg swelling/ pain Procedures: Colorflow, Grayscale/2D, Pulsed wave Doppler SUMMARY: DUPLEX SCAN OBSERVATIONS Deep Veins Superficial Veins Right Left Right Left EIV GSV (prox) Patent CFV Patent (above knee) Femoral Patent GSV (dist) Patent Profunda Patent (below knee) Popliteal Patent PT (prox) Patent SSV Patent PT (dist) Patent Peroneal Patent Gastrocs Patent RIGHT: There is normal compressibility with no evidence of echogenic material noted within the lumen of the visualized veins. Colorflow and Doppler signals demonstrate patency. PRELIMINARY FINDINGS: 1. No evidence of deep venous thrombosis in the visualized lower extremity veins. PHYSICIAN INTERPRETATION: Venous examination of the Right lower extremity demonstrated no evidence of venous thrombosis in the visualized veins. Normal compressibility or augmentation of all visualized veins. FINDINGS: Signed 01/25/2025 10:05 AM Abhay Felipe MD, FACS, RPVI Procedure Note Abhay Felipe MD - 01/25/2025 Vascular Ultrasound Laboratory Lower Extremity Venous Report [address] [place] [address] Pat.Name: RBEANNA BETANCUR Pat.ID: [id number] .Date: 01/25/2025 Refer.MD: CONCEPCIÓN PRASAD MD Exam Time: 5:36:00 AM Study Type:LE Venous Height: 67in Weight: 240lb BSA: 2.19 m2 Age: 2 1995,29Y Sex: FEMALE Sonogrphr: ZACH Wise Pat. Stat.:Inpatient Room: ED Tape Vol: , CPT - 4: 41460 Echo Event ID:[id number] Order ID: [id number] Reason for Study:leg swelling/ pain Procedures: Colorflow, Grayscale/2D, Pulsed wave Doppler SUMMARY: DUPLEX SCAN OBSERVATIONS Deep Veins Superficial Veins Right Left Right Left EIV GSV (prox) Patent CFV Patent (above knee) Femoral Patent GSV (dist) Patent Profunda Patent (below knee) Popliteal Patent PT (prox) Patent SSV Patent PT (dist) Patent Peroneal Patent Gastrocs Patent RIGHT: There is normal compressibility with no evidence of echogenic material noted within the lumen of the visualized veins. Colorflow and Doppler signals demonstrate patency. PRELIMINARY FINDINGS: 1. No evidence of deep venous thrombosis in the visualized lower extremity veins. PHYSICIAN INTERPRETATION: Venous examination of the Right lower extremity demonstrated no evidence of venous thrombosis in the visualized veins. Normal compressibility or augmentation of all visualized veins. FINDINGS: Signed 01/25/2025 10:05 AM Abhay Felipe MD, FACS, RPVI Concepción Prasad MD CV VASCULAR ORDERABLE S Final Result * TSH with reflex to free T4 (01/21/2025 1:55 AM CDT) [facility] TSH 0.52 0.27 - 4.20 uIU/mL 01/21/2025 2:44 AM CDT [facility] Plasma Venipuncture / Unknown 01/21/2025 1:55 AM CDT 01/21/2025 2:04 AM CDT Narrative [facility] DEPARTMENT OF PATHOLOGY AND GENOMIC MEDICINE - 01/21/2025 2:44 AM CDT us Quang Humphrey MD LAB BLOOD ORDERABLES Final Resu lt [facility] DEPARTMENT OF PATHOLOGY AND GENOMIC MEDICINE [address] [place] [address] [address] * Estimated GFR (01/21/2025 1:55 AM CDT) Only the most recent of7 resultswithin the time period is included. [facility] eGFR creat (CKD-EPI 2020) 86 mL/min/1. 73 m^2 01/21/2025 2:44 AM CDT [facility] Comment: The creatinine-estimated glomerular filtration rate (Cr-eGFR) is calculated using the equation recommended in January,, by the National Kidney Foundation/[place] [employer] of Nephrology Task Force on Reassessing the Inclusion of Race in Diagnosing Kidney Disease. DOI: https://doi.org/10.1053/j.ajkd.2020.08.003). eGFR Interpretation see below 01/21/2025 2:44 AM CDT [facility] Comment: Category Units Interpretation G1 >=90 Normal or high G2 60-89 Mildly decreased G3a 45-59 Mildly to moderately decreased G3b 30-44 Moderately to severely decreased G4 15-29 Severely decreased G5 <15 Kidney failure Plasma Venipuncture / Unknown 01/21/2025 1:55 AM CDT 01/21/2025 2:04 AM CDT Narrative [facility] DEPARTMENT OF PATHOLOGY AND GENOMIC MEDICINE - 01/21/2025 2:44 AM CDT us Quang Humphrey MD LAB BLOOD ORDERABLES Final Resu lt [facility] DEPARTMENT OF PATHOLOGY AND GENOMIC MEDICINE [address] [place] [address] [address] * D-dimer (01/21/2025 1:55 AM CDT) D-dimer 0.34 0.00 - 0.40 ug/mL FEU 01/21/2025 2:37 AM T [facility] Comment: Units are ug/ml Fibrinogen Equivalent Unit. When combined with low clinical probability, D-dimer results of less than 0.5 ug/ml FEU have a good negative predictive value in excluding PE or DVT. For D-dimer results greater than 0.5 ug/ml FEU further testing is indicated if PE or DVT is suspected clinically. Elevated D-dimer results have been reported in DVT, PE, and DIC cases and may indicate the presence of a clot. D-dimer results may be elevated due to old age, , inflammatory diseases, trauma, post-operative states, sepsis, and malignancies. Blood Venipuncture / Unknown 01/21/2025 1:55 AM CDT 01/21/2025 2:03 AM CDT us Quang Humphrey MD LAB BLOOD ORDERABLES Final Resu lt [facility] DEPARTMENT OF PATHOLOGY AND GENOMIC MEDICINE [address] [place] [address] [facility] [address] [place] [address] * (ABNORMAL) CBC with platelet and differential (01/21/2025 1:55 AM CDT) Only the most recent of6 resultswithin the time period is included. WBC 6.50 4.50 - 11.00 k/uL 01/21/2025 2:09 AM [facility] RBC 4.88 4.20 - 5.50 m/uL 01/21/2025 2:09 AM [facility] HGB 12.9 12.0 - 16.0 g/dL 01/21/2025 2:09 AM [facility] HCT 41.4 37.0 - 47.0 % 01/21/2025 2:09 AM [facility] MCV 84.8 82.0 - 100.0 fL 01/21/2025 2:09 AM [facility] MCH 26.4(L) 27.0 - 34.0 pg 01/21/2025 2:09 AM [facility] MCHC 31.2 31.0 - 37.0 g/dL 01/21/2025 2:09 AM [facility] RDW - SD 40.1 37.0 - 55.0 fL 01/21/2025 2:09 AM [facility] MPV 12.8 8.8 - 13.2 fL 01/21/2025 2:09 AM [facility] Platelet count 224 150 - 400 k/uL 01/21/2025 2:09 AM [facility] Nucleated RBC 0.00 /100 WBC 01/21/2025 2:09 AM [facility] Neutrophils 50.5 39.0 - 69.0 % 01/21/2025 2:09 AM CDT [facility] Lymphocytes 41.5 25.0 - 45.0 % 01/21/2025 2:09 AM CDT [facility] Monocytes 5.5 0.0 - 10.0 % 01/21/2025 2:09 AM T [facility] Eosinophils 1.7 0.0 - 5.0 % 01/21/2025 2:09 AM CDT [facility] Basophils 0.5 0.0 - 1.0 % 01/21/2025 2:09 AM CDT [facility] Immature granulocytes 0.3 0.0 - 1.0 % 01/21/2025 2:09 AM T [facility] Comment: Immature granulocyt es (promyelocytes, myelocytes, metamyelocytes) Plasma Venipuncture / Unknown 01/21/2025 1:55 AM CDT 01/21/2025 2:03 AM CDT Quang Humphrey MD LAB BLOOD ORDERABLES Final Resu lt [facility] OF PATHOLOGY AND GENOMIC MEDICINE [address] [place] [address] * hCG qualitative, serum screen (01/21/2025 1:55 AM CDT) Only the most recent of2 resultswithin the time period is included. hCG qualitative, serum Negative 01/21/2025 2:43 AM CDT [facility] Comment:The pv design and installation technician?s s tated sensitivity of this assay is 10 mIU/mL in serum. Blood Venipuncture / Unknown 01/21/2025 1:55 AM CDT 01/21/2025 2:04 AM CDT Narrative [facility] DEPARTMENT OF PATHOLOGY AND GENOMIC MEDICINE - 01/21/2025 2:43 AM CDT us Quang Humphrey MD LAB BLOOD ORDERABLES Final Resu lt [facility] DEPARTMENT OF PATHOLOGY AND GENOMIC MEDICINE [address] [place] [address] [place] [address] * (ABNORMAL) Comprehensive metabolic panel (01/21/2025 1:55 AM [facility]) Only the most recent of2 resultswithin the time period is included. Sodium 137 135 - 148 mEq/L 01/21/2025 2:44 AM [facility] Potassium 4.5 3.5 - 5.0 mEq/L 01/21/2025 2:44 AM [facility] Chloride 105 98 - 112 mEq/L 01/21/2025 2:44 AM [facility] CO2 20(L) 24 - 31 mEq/L 01/21/2025 2:44 AM [facility] Anion gap 12 7 - 15 mEq/L 01/21/2025 2:44 AM [facility] BUN 17 6 - 20 mg/dL 01/21/2025 2:44 AM [facility] Creatinine 0.93(H) 0.50 - 0.90 mg/dL 01/21/2025 2:44 AM [facility] Glucose 105(H) 65 - 99 mg/dL 01/21/2025 2:44 AM [facility] Calcium 10.0 8.3 - 10.2 mg/dL 01/21/2025 2:44 AM [facility] Protein 7.4 6.3 - 8.3 g/dL 01/21/2025 2:44 AM [facility] Comment: - 4.6-7.0 g/dL 1 week 4.4-7.6 g/dL 7 months-1year 5.1-7.3 g/dL 1-2 years 5.6-7.5 g/dL >3 years 6.0-8.0 g/dL 18-150 6.3-8.3 g/dL Albumin 3.6 3.5 - 5.0 g/dL 01/21/2025 2:44 AM [facility] Albumin/globulin ratio 0.9 0.7 - 3.8 01/21/2025 2:44 AM [facility] Alkaline phosphatase 78 35 - 104 U/L 01/21/2025 2:44 AM [facility] AST 21 10 - 35 U/L 01/21/2025 2:44 AM CDT [facility] ALT 36 5 - 50 U/L 01/21/2025 2:44 AM CDT [facility] Total bilirubin 0.2 0.0 - 1.2 mg/dL 01/21/2025 2:44 AM CDT [facility] Plasma Venipuncture / Unknown 01/21/2025 1:55 AM CDT 01/21/2025 2:04 AM CDT Narrative [facility] DEPARTMENT OF PATHOLOGY AND GENOMIC MEDICINE - 01/21/2025 2:44 AM CDT Quang Humphrey MD LAB BLOOD ORDERABLES Final Resu lt Performing Organization Address City/[facility] Co de Phone Number [facility] DEPARTMENT OF PATHOLOGY AND GENOMIC MEDICINE [address] [place] [phone] [address] * ECG 12 lead (01/20/2025 11:33 PM CDT) Only the most recent of2 resultswithin the time period is included. Ventricular rate 72 [facility]USE Atrial rate [address] interval 138 [facility] QRSD interval 76 [facility] QT interval 382 [facility] QTC interval 418 [facility] P axis 1 50 [facility] MUSE QRS axis 1 32 [facility] MUSE T wave axis 19 [facility] EKG impression Normal sinus rhythm-Possibl e Left atrial enlargement-Fred rderline ECG-In automated comparison with ECG of 19-JAN-2025 16:44,-Questio nable change in QRS axis-Shannani elke Signed By Mika HERNANDEZ, Jamie ([id number]) on 01/22/2025 9:13:32 AM [facility] MUSE 01/20/2025 11:3 3 PM CDT 01/22/2025 9:13 AM CDT Quang Humphrey MD ECG ORDERABLES Final Result Performing Organization Address City/[facility]/ZIP Co de Phone Number [facility] MUSE [address] [place] [address] * Urinalysis screen and microscopy, with reflex to culture (01/19/2025 8:22 PM CDT) Specimen site Clean catch 01/19/2025 8:42 PM CDT [facility] Color, UA Straw 01/19/2025 8:42 PM CDT [facility] Appearance, UA Clear 01/19/2025 8:42 PM CDT [facility] Specific gravity, UA 1.008 1.001 - 1.035 01/19/2025 8:42 PM CDT [facility] pH, UA 8.0 5.0 - 8.5 01/19/2025 8:42 PM CDT [facility] Protein, UA Negative Negative 01/19/2025 8:42 PM CDT [facility] Glucose, UA Negative Negative 01/19/2025 8:42 PM CDT [facility] Ketones, UA Negative Negative 01/19/2025 8:42 PM CDT [facility] Bilirubin, UA Negative Negative 01/19/2025 8:42 PM CDT [facility] Blood, UA Negative Negative 01/19/2025 8:42 PM CDT [facility] Nitrite, UA Negative Negative 01/19/2025 8:42 PM CDT [facility] Urobilinogen, UA <2.0 <2.0 mg/dL 01/19/2025 8:42 PM CDT [facility] Leukocyte esterase, UA Negative Negative 01/19/2025 8:42 PM CDT [facility] Epithelial cells, UA 5 0 - 5 /hpf 01/19/2025 8:44 PM CDT [facility] WBC, UA 2 0 - 4 /hpf 01/19/2025 8:44 PM T [facility] RBC, UA 1 0 - 5 /hpf 01/19/2025 8:44 PM T [facility] Bacteria, UA None seen None seen 01/19/2025 8:44 PM T [facility] Yeast, UA None seen None seen 01/19/2025 8:44 PM CDT [facility] Yeast with pseudohyphae, UA None seen None seen 01/19/2025 8:44 PM CDT [facility] Urine Venipuncture / Unknown 01/19/2025 8:22 PM CDT 01/19/2025 8:42 PM CDT Narrative [facility] DEPARTMENT OF PATHOLOGY AND GENOMIC MEDICINE - 01/19/2025 8:44 PM CDT Drew Hunter II, MD URINE ORDERABLES Final Res ult [facility] DEPARTMENT OF PATHOLOGY AND GENOMIC MEDICINE [address] [place] [phone] * Urine culture (01/19/2025 8:22 PM CDT) Urine culture SEE COMMENT 01/19/2025 8:44 PM CDT [facility] Comment:Bacteriuria screen n egative. Urine Venipuncture / Unknown 01/19/2025 8:22 PM CDT 01/19/2025 8:42 PM CDT Narrative [facility] DEPARTMENT OF PATHOLOGY AND GENOMIC MEDICINE - 01/19/2025 8:44 PM CDT Drew Hunter II, MD MICROBIOLOGY - GENERAL ORD ERABLES Final Result [facility] DEPARTMENT OF PATHOLOGY AND GENOMIC MEDICINE [address] [place] [phone] [place] [address] [address] [place] [phone] * Troponin T (01/19/2025 5:19 PM CDT) Troponin T <6 0 - 19 ng/L 01/19/2025 5:54 PM CDT [facility] Comment: In patients suspected of having a myocardial infarction, along with all other appropriate clinical measures and actions including ECG and other diagnostics as appropriate, measure Troponin T at 0 hours and at 3 hours. Myocardial infarction VERY LIKELY The 0 hour Troponin T is >52 ng/L Myocardial infarction is LIKELY The 0 hour Troponin T is >19 ng/L and the 3 hour level is increased or decreased by at least 5 ng/L Myocardial infarction is VERY UNLIKELY Both the 0 hour and 3 hour Troponin T levels are <=19 ng/L, OR 0 hour Troponin T is >19 ng/L but the 3 hour Troponin T is increased or decreased by less than 5 ng/L. Plasma Venipuncture / Unknown 01/19/2025 5:19 PM CDT 01/19/2025 5:23 PM CDT Narrative [facility] DEPARTMENT OF PATHOLOGY AND GENOMIC MEDICINE - 01/19/2025 5:54 PM CDT us Abhay Terry MD LAB BLOOD ORDERABLES Final Result [facility] DEPARTMENT OF PATHOLOGY AND GENOMIC MEDICINE [address] [place] [address] [facility] [address] [place] [address] * (ABNORMAL) NT-proBNP (01/19/2025 5:19 PM CDT) NT-proBNP 241(H) 0 - 125 pg/mL 01/19/2025 5:54 PM CDT [facility] Plasma Venipuncture / Unknown 01/19/2025 5:19 PM CDT 01/19/2025 5:23 PM CDT Narrative [facility] DEPARTMENT OF PATHOLOGY AND GENOMIC MEDICINE - 01/19/2025 5:54 PM CDT us Abhay Terry MD LAB BLOOD ORDERABLES Final Result Performing Organization Address City/[facility]/ZIP Co de Phone Number [facility] DEPARTMENT OF PATHOLOGY AND GENOMIC MEDICINE [address] [place] [address] [facility] [address] [place] [address] * (ABNORMAL) ECG ED PRELIMINARY INTERPRETATION (01/19/2025 4:44 PM CDT) Narrative Drew Hunter II, MD - 01/19/2025 4:44 PM CDT Drew Hunter II, MD 01/20/2025 2:27 AM ECG ED Preliminary Interpretation - Not an Order Date/Time: 01/19/2025 4:44 PM Performed by: Drew Hunter II, MD Authorized by: Drew Hunter II, MD Previous ECG: Previous ECG: Compared to current Similarity: No change Interpretation: Interpretation (ECG result is as interpreted by me): abnormal Rate: ECG rate: 66 ECG rate assessment: normal Rhythm: Rhythm: sinus rhythm QRS: QRS axis: Right QRS intervals: Normal QRS conduction: normal ST segments: ST segments: Normal T waves: T waves: inverted Inverted: III, aVF, V3 and V4 Drew Hunter II, MD ECG ORDERABLES Final Resu lt * Phosphorus level (01/16/2025 12:47 AM CDT) Only the most recent of4 resultswithin the time period is included. Phosphorus 3.3 2.4 - 4.5 mg/dL 01/16/2025 1:39 AM CDT [facility] Plasma Venipuncture / Unknown 01/16/2025 12:47 AM CDT 01/16/2025 12:53 AM CDT Narrative [facility] DEPARTMENT OF PATHOLOGY AND GENOMIC MEDICINE - 01/16/2025 1:39 AM CDT Ian Ibarra MD LAB BLOOD ORDERABLES Quyen l Result [facility] DEPARTMENT OF PATHOLOGY AND GENOMIC MEDICINE [address] [place] [address] [facility] [address] [place] [address] * Magnesium level (01/16/2025 12:47 AM CDT) Only the most recent of4 resultswithin the time period is included. Magnesium 2.0 1.6 - 2.6 mg/dL 01/16/2025 1:39 AM CDT [facility] Plasma Venipuncture / Unknown 01/16/2025 12:47 AM CDT 01/16/2025 12:53 AM CDT Narrative [facility] DEPARTMENT OF PATHOLOGY AND GENOMIC MEDICINE - 01/16/2025 1:39 AM CDT Ian Ibarra MD LAB BLOOD ORDERABLES Quyen l Result Performing Organization Address City/[facility]/ZIP Co de Phone Number [facility] DEPARTMENT PATHOLOGY [address] [address] * Ionized calcium (01/16/2025 12:47 AM CDT) Only the most recent of2 resultswithin the time period is included. pH 7.36 01/16/2025 1:54 AM CDT [facility] Ionized calcium 1.11 1.11 - 1.32 mmol/L 01/16/2025 1:54 AM CDT [facility] Plasma Venipuncture / Unknown 01/16/2025 12:47 AM CDT 01/16/2025 12:53 AM CDT Narrative [facility] DEPARTMENT OF PATHOLOGY AND GENOMIC MEDICINE - 01/16/2025 1:54 AM CDT Sarah Morales NP LAB BLOOD ORDERABLES Fin al Result [facility] DEPARTMENT PATHOLOGY [facility] GENOMIC MEDICINE [address] [place] [address] * Vancomycin level, random (01/16/2025 12:47 AM CDT) Vancomycin, random 16.9 ug/mL 01/16/2025 1:39 AM CDT [facility] Serum Venipuncture / Unknown 01/16/2025 12:47 AM CDT 01/16/2025 12:53 AM CDT Narrative [facility] DEPARTMENT OF PATHOLOGY AND GENOMIC MEDICINE - 01/16/2025 1:39 AM CDT us Param Perdue MD LAB BLOOD ORDERABLES Final Result [facility] OF PATHOLOGY AND GENOMIC MEDICINE [address] [place] [address] [facility] [address] [place] [address] * (ABNORMAL) Hepatic function panel (01/16/2025 12:47 AM CDT) Only the most recent of4 resultswithin the time period is included. Albumin 3.0(L) 3.5 - 5.0 g/dL 01/16/2025 1:39 AM [facility] Total bilirubin 0.3 0.0 - 1.2 mg/dL 01/16/2025 1:39 AM [facility] Bilirubin direct <0.2 0.0 - 0.3 mg/dL 01/16/2025 1:39 AM [facility] Alkaline phosphatase 71 35 - 104 U/L 01/16/2025 1:39 AM [facility] Protein 6.3 6.3 - 8.3 g/dL 01/16/2025 1:39 AM [facility] Comment: - 4.6-7.0 g/dL 1 week 4.4-7.6 g/dL 7 months-1year 5.1-7.3 g/dL 1-2 years 5.6-7.5 g/dL >3 years 6.0-8.0 g/dL 18-150 6.3-8.3 g/dL ALT 10 5 - 50 U/L 01/16/2025 1:39 AM [facility] AST 17 10 - 35 U/L 01/16/2025 1:39 AM [facility] Plasma Venipuncture / Unknown 01/16/2025 12:47 AM CDT 01/16/2025 12:53 AM CDT Narrative [facility] DEPARTMENT OF PATHOLOGY AND GENOMIC MEDICINE - 01/16/2025 1:39 AM CDT Ian Ibarra MD LAB BLOOD ORDERABLES Quyen l Result Performing Organization Address City/[facility] Co de Phone Number [facility] OF PATHOLOGY AND GENOMIC MEDICINE [address] [place] [phone] [address] * (ABNORMAL) Basic metabolic panel (01/16/2025 12:47 AM CDT) Only the most recent of5 resultswithin the time period is included. Pathologist [facility] Sodium 139 135 - 148 mEq/L 01/16/2025 1:39 AM [facility] Potassium 3.2(L) 3.5 - 5.0 mEq/L 01/16/2025 1:39 AM [facility] Chloride 111 98 - 112 mEq/L 01/16/2025 1:39 AM [facility] CO2 18(L) 24 - 31 mEq/L 01/16/2025 1:39 AM [facility] Anion gap 10 7 - 15 mEq/L 01/16/2025 1:39 AM [facility] BUN 11 6 - 20 mg/dL 01/16/2025 1:39 AM [facility] Creatinine 0.92(H) 0.50 - 0.90 mg/dL 01/16/2025 1:39 AM [facility] Glucose 118(H) 65 - 99 mg/dL 01/16/2025 1:39 AM [facility] Calcium 8.3 8.3 - 10.2 mg/dL 01/16/2025 1:39 AM [facility] Plasma Venipuncture / Unknown 01/16/2025 12:47 AM CDT 01/16/2025 12:53 AM CDT Narrative [facility] DEPARTMENT OF PATHOLOGY AND GENOMIC MEDICINE - 01/16/2025 1:39 AM CDT Ian Ibarra MD LAB BLOOD ORDERABLES Quyen l Result Performing Organization Address City/[facility]/ZIP Co de Phone Number [facility] DEPARTMENT OF PATHOLOGY AND GENOMIC MEDICINE [address] [place] [id number] [place] [address] * (ABNORMAL) POC glucose (01/15/2025 8:12 PM CDT) Only the most recent of5 resultswithin the time period is included. POC glucose 108(H) 65 - 99 mg/dL 01/15/2025 8:19 PM CDT [facility] Comment: Acute Care Nurse Name: Jose Jamil Device ID: [id number] Chartable: [facility] Notified RN 01/15/2025 8:12 PM CDT 01/15/2025 8:18 PM CDT Ian Ibarra MD POINT OF CARE TEST ORDERA BLES Final Result [facility] DEPARTMENT OF PATHOLOGY AND GENOMIC MEDICINE [address] [place] [address] * CT Head Wo Contrast (01/14/2025 6:58 PM CDT) Anatomical Region Laterality Modality Head Computed Tomogra phy 01/14/2025 7:02 PM CDT Impressions 01/14/2025 7:03 PM CDT Recent placement of right frontal ventricular catheter with expected appearance.. 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 TECHNIQUE: Noncontrast head CT performed using radiation dose reduction techniques. Technical factors are evaluated and adjusted to ensure appropriate moderation of exposure. Automated dose management technology is applied to adjust radiation exposure while achieving a diagnostic quality image. FINDINGS: No evidence of acute intracranial hemorrhage, mass, mass effect, midline shift, or acute infarct. Ventricles and sulci are normal in appearance for patient's age. Basal cisterns are clear. Right frontal ventricular catheter with tip at the right frontal horn. Trace of pneumocephalus at the right frontal pole. Trace of emphysema at the right frontal scalp.. Calvarium is intact. Orbits are normal in appearance. No significant paranasal sinus mucosal thickening. Mastoid air cells are clear. 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 TECHNIQUE: Noncontrast head CT performed using radiation dose reductiontechniques. Technical factors are evaluated and adjusted to ensureappropriate moderation of exposure. Automated dose management technologyis applied to adjust radiation exposure while achieving a diagnostic quality image. FINDINGS: No evidence of acute intracranial hemorrhage, mass, mass effect, midlineshift, or acute infarct. Ventricles and sulci are normal in appearance for patient's age. Basalcisterns are clear. Right frontal ventricular catheter with tip at theright frontal horn. Trace of pneumocephalus at the right frontal pole.Trace of emphysema at the right frontal scalp.. Calvarium is intact. Orbits are normal in appearance. No significant paranasal sinus mucosalthickening. Mastoid air cells are clear. IMPRESSION: Recent placement of right frontal ventricular catheter with expectedappearance.. [id number] us Ian Ibarra MD IMG CT ORDERABLES Final R esult * CT AN ELECTIVE ENDOTRACHEAL AIRWAY (01/14/2025 3:51 PM CDT) Narrative Margret Andrews CRNA - 01/14/2025 3:51 PM CDT Margret Andrews CRNA 01/14/2025 4:26 PM Airway Date/Time: 01/14/2025 3:51 PM Location: OR Performed by: TIFFANIE/ERIKA Resident/TIFFANIE/AA: Margret Andrews CRNA Authorized by: Ricardo Gudino MD Urgency: Elective Difficult Airway: No Preoxygenated with 100% O2: Yes Mask Ventilation: Easy mask Final Airway Type: Endotracheal airway Final Endotracheal Airway: ETT Cuffed: Yes Technique Used: Direct laryngoscopy Devices/Methods Used in Placement: Intubating stylet Insertion Site: Oral Blade Type: Pedraza Laryngoscope Blade/Videolaryngoscope Blade Size: 2 ETT Size (mm): 7.0 Cuff at minimum occlusion pressure: Yes Measured from: Lips ETT to Lips (cm): 21 Placement Verified by: CO2 detection, direct visualization and equal breath sounds Laryngoscopic view: Grade I - full view of glottis (w/ BURP maneuver) Rapid Sequence Induction (RSI): No Modified RSI: No Number of Attempts at Approach: 1 Preoxygenated w/ 1.0 FiO2 upon arrival to OR. Eyes taped at LOC and prior to airway manipulation. +BBS, +EtCO2. Atraumatic intubation, all soft tissue and dentition intact as per preop status. us Ricardo Gudino MD ANESTHESIA ORDERABLES Final Result * hCG qualitative, urine screen (01/14/2025 12:34 PM CDT) hCG qualitative, urine Negative 01/14/2025 12:58 PM CDT [facility] Comment:The pv design and installation technician?s s tated sensitivity of this assay is 20 mIU/mL in urine. Urine Venipuncture / Unknown 01/14/2025 12:34 PM CDT 01/14/2025 12:46 PM CDT Narrative [facility] DEPARTMENT OF PATHOLOGY AND GENOMIC MEDICINE - 01/14/2025 12:58 PM CDT us Param Perdue MD URINE ORDERABLES Final Res ult [facility] DEPARTMENT OF PATHOLOGY AND GENOMIC MEDICINE [address] [place] [address] * CT Stealth Brain Wo Contrast (01/13/2025 5:07 PM CDT) Anatomical Region Laterality Modality Head Computed Tomogra phy 01/13/2025 5:29 PM CDT Impressions 01/13/2025 5:31 PM CDT * No acute intracranial abnormality identified. [id number] Narrative 01/13/2025 5:31 PM CDT EXAMINATION: CT STEALTH BRAIN WO CONTRAST CLINICAL HISTORY: preop scan COMPARISON: CT brain dated September 30, 2024. TECHNIQUE: Noncontrast enhanced images of the brain were obtained from the skull base to the vertex. Both soft tissue and bone reconstruction algorithms were performed. CT imaging was performed with iterative reconstruction technique and/or automated exposure control to reduce radiation dose. FINDINGS: The brain parenchyma has no acute lesion. The zamorano-white matter differentiation is preserved. No evidence of acute intra or extra-axial hemorrhage, mass, mass effect or acute territorial infarction. There is no acute hydrocephalus. Basal cisterns are patent. No change from prior exam. There is no atrophy. No acute soft tissue hematoma or laceration. The paranasal sinuses shows no acute air-fluid levels. The mastoid air cells are clear. There are no visualized skull fractures or aggressive bony lesions. Procedure Note Nehemiah James MD - 01/13/2025 EXAMINATION: CT STEALTH BRAIN WO CONTRAST CLINICAL HISTORY: preop scan COMPARISON: CT brain dated September 30, 2024. TECHNIQUE: Noncontrast enhanced images of the brain were obtained from theskull base to the vertex. Both soft tissue and bone reconstructionalgorithms were performed. CT imaging was performed with iterativereconstruction technique and/or automated exposure control to reduce radiation dose. FINDINGS: The brain parenchyma has no acute lesion. The zamorano-white matterdifferentiation is preserved. No evidence of acute intra or extra-axialhemorrhage, mass, mass effect or acute territorial infarction. There is noacute hydrocephalus. Basal cisterns are patent. No change from prior exam. There is no atrophy. No acute soft tissue hematoma or laceration. The paranasal sinuses shows no acute air-fluid levels. The mastoid aircells are clear. There are no visualized skull fractures or aggressivebony lesions. IMPRESSION: * No acute intracranial abnormality identified. [id number] us Clau Sullivan MD [facility] CT ORDERABLES Final Re sult * Partial thromboplastin time, activated (01/13/2025 2:04 PM CDT) PTT 26.5 23.0 - 36.0 sec 01/13/2025 3:20 PM CDT [facility] Comment: Therapeutic range of Anti-Xa for unfractionated heparin is 0.3-0.7 U/ml which corresponds to PTT 72.0-110.0 seconds. ([employer] Conference XXXI on Laboratory Monitoring of Anticoagulant Therapy; Laboratory Monitoring of Unfractionated Heparin Therapy. Archives of Pathology & Laboratory Medicine, Vol. 122, January 1998, pp. [phone]). Blood Venipuncture / Unknown 01/13/2025 2:04 PM CDT 01/13/2025 2:42 PM CDT Narrative [facility] DEPARTMENT OF PATHOLOGY AND GENOMIC MEDICINE - 01/13/2025 3:20 PM CDT us Clau Sullivan MD LAB BLOOD ORDERABLES Final Result Performing Organization Address City/[facility] Co de Phone Number [facility] AND [facility] [address] [place] [address] [address] * Prothrombin time with INR (01/13/2025 2:04 PM CDT) [facility] Prothrombin time 14.0 11.5 - 14.5 sec 01/13/2025 3:19 PM CDT [facility] INR 1.1 01/13/2025 3:19 PM CDT [facility] Comment: The International Normalized Ratio (INR) is a therapeutic monitoring tool for patients who are stable on oral anticoagulant therapy. An INR of 2.0-3.0 is suggested for deep vein thrombosis/pulmonary embolism. Blood Venipuncture / Unknown 01/13/2025 2:04 PM CDT 01/13/2025 2:42 PM CDT Narrative [facility] DEPARTMENT OF PATHOLOGY AND [facility] MEDICINE - 01/13/2025 3:19 PM CDT us Clau Sullivan MD LAB BLOOD ORDERABLES Final Result Performing Organization Address City/[facility]/ZIP Co de Phone Number [facility] DEPARTMENT OF PATHOLOGY AND [facility] MEDICINE [address] [place] [address] [address] * Type and screen (01/13/2025 2:04 PM CDT) ABO grouping O 01/13/2025 3:49 PM CDT [facility] Rh type POS 01/13/2025 3:49 PM CDT [facility] Antibody screen (gel) NEG 01/13/2025 3:49 PM CDT [facility] Plasma Venipuncture / Unknown 01/13/2025 2:04 PM CDT 01/13/2025 2:42 PM CDT us Clau Sullivan MD BLOOD BANK TEST ORDERABLES Final Result [facility] DEPARTMENT OF PATHOLOGY AND GENOMIC MEDICINE [address] [place] [address] [facility] [address] [place] [address] * Gynecologic Pap Test (Image-guided), Liquid-based Preparation and Human Papillomavirus (HPV) (Aptima??) With Reflex to HPV Genotypes 16 and 18,45 16 and 18 (01/03/2025 4:31 PM CDT) Diagnosis Comment [facility] Comment:NEGATIVE FOR INTRAEP ITHELIAL LESION OR MALIGNANCY. Specimen adequacy Comment [facility] Comment:Satisfactory for dirk luation. No endocervical component is identified. Performed by: Comment [facility] Comment:Madi Thompson Sr, Cyt ologist (ASCP) Comment . [facility] Note: Comment [facility] 02 Comment: The Pap smear is a screening test designed to aid in the detection of premalignant and malignant conditions of the uterine cervix. It is not a diagnostic procedure and should not be used as the sole means of detecting cervical cancer. Both false-positive and false-negative reports do occur. Test methodology Comment [facility] 02 Comment: This liquid based ThinPrep(R) pap test was screened with the use of an image guided system. HPV Aptima Negative Negative [facility] 03 Comment: This nucleic acid amplification test detects fourteen high-risk HPV types (16,18,31,33,35,39,45,51,52,56,58,59,66,68) without differentiation. HPV genotype reflex Comment [facility] Comment:Criteria not met, HP V Genotype not performed. Swab 01/03/2025 4:31 PM CDT 01/04/2025 Narrative [facility] - 01/09/2025 3:12 PM CDT Performed at: [address] [place] [id number] Conversion Developer: Maria Esther Hou MD, Phone: [phone] Performed at: - [facility] [address] [place], [place] [id number] Conversion Developer: Braden Richter MD, Phone: [phone] Performed at: 03 - [facility] [address] [place], [place] [id number] Conversion Developer: Braden Richter MD, Phone: [phone] Specimen Comment: [id number] Specimen Comment: No. of containers..01 ThinPrep Vial us Elizabeth Ta MD PATHOLOGY/CYTOLOGY ORDER JOHNNY Final Result [facility] 02 [facility] 03 from Last 3 Months or Most Recently Relevant to Health Maintenance Insurance [employer] CHOICE PPO Care Teams Locker Room Supervisor Relationship Specialty Start Date End Date Asked, No Pcp [phone] PCP - General 01/21/25
--- OUTSIDE RECORDS SUMMARY | 2025-04-15 08:52 | XMS_ITS ---
Author Name [facility] Organization Unknown Encounters Encounter Type Encounter Reason Primary Diagnosis Location Date Ambulatory Compression of brain Compression of brain [facility] 02/19/2025 Care Team Organization Name Specialty Phone Email Start Date End Chidi sanabria [facility] ANGEL FRAZIER [facility] 02/19/2025
--- OUTSIDE RECORDS SUMMARY | 2025-04-15 08:52 | XMS_ITS | Encounter Summary ---
Author Organization [facility] Address [address] [place] [address] Care Team Providers Care Production Proofreader Name Role Phone Asked, No Pcp Primary Care Provider Unavailabl e Reason for Referral * MRI/CAT/PET Scan (Routine) - Closed Specialty Diagnoses / Procedures Referred By Contac t Referred To Contact Radiology Diagnoses Radiculopathy, cervical region Spinal instabilities, cervical region Pain in thoracic spine Low back pain, unspecified Procedures MRI Thoracic Spine Wo Contrast Stefani James PA-C [address] [place] [phone] Phone: tel: fax: [place] [address] Phone: tel: Referral ID Status Reason Start Date Expiration Date Visits Re quested Visits Authorized [id number] Closed 07/13/2024 09/14/2024 1 1 L AREA NETWORK SYSTEMS ADMINSTRATOR * MRI/CAT/PET Scan (Routine) - Closed Specialty Diagnoses / Procedures Referred By Contac t Referred To Contact Radiology Diagnoses Radiculopathy, cervical region Spinal instabilities, cervical region Pain in thoracic spine Low back pain, unspecified Procedures MRI Lumbar Spine Wo Contrast Stefani James PA-C [address] [place] [address] Phone: tel: fax: [place] [address] Phone: tel: Referral ID Status Reason Start Date Expiration Date Visits Re quested Visits Authorized [id number] Closed 07/13/2024 09/14/2024 1 1 L AREA NETWORK SYSTEMS ADMINSTRATOR * MRI/CAT/PET Scan (Routine) - Closed Specialty Diagnoses / Procedures Referred By Contac t Referred To Contact Radiology Diagnoses Radiculopathy, cervical region Spinal instabilities, cervical region Pain in thoracic spine Low back pain, unspecified Procedures MRI Cervical Spine Wo Contrast Stefani James PA-C [address] [place] [address] Phone: tel: fax: [address] [address] Phone: tel: Referral ID Status Reason Start Date Expiration Date Visits Re quested Visits Authorized [id number] Closed 07/13/2024 09/14/2024 1 1 L AREA NETWORK SYSTEMS ADMINSTRATOR Encounter Details Date Type Department Care Team (Latest Contact Info) Description 07/13/2024 Transcribe Orders [address] [phone] Stefani James PA-C [address] [place] [address] Radiculopathy, cervical region (Primary Dx); Spinal instabilities, cervical region; Pain in thoracic spine; Low back pain, unspecified Social History Tobacco Use Types Packs/Day Years [...] AM CDT Legal Sex Female 10:29 AM LOCAL AREA NETWORK SYSTEMS ADMINSTRATOR Gender Identity Female 11/02/2024 9:00 AM CDT Sexual Orientation Not on file documented as of this encounter Plan of Treatment Upcoming Encounters Date Type Department Care Team (Late st Contact Info) Description 05/09/2025 8:30 AM LOCAL AREA NETWORK SYSTEMS ADMINSTRATOR Office Visit [place] Elisabeth Guzman NadiaAnabella Pineda Department of Neurology [address] [facility] [address] [place] [phone] Lubna Luong PSY.D [address] [phone] 05/27/2025 2:00 PM LOCAL AREA NETWORK SYSTEMS ADMINSTRATOR Ancillary Procedure [facility] [address] [place] [address] [place] [phone] Elizabeth Ta MD [address] [place] [address] [phone] 05/27/2025 2:30 PM LOCAL AREA NETWORK SYSTEMS ADMINSTRATOR Office Visit [place] [facility] [address] [place] [phone] Elizabeth Ta MD [address] [place] [address] 06/26/2025 3:40 PM LOCAL AREA NETWORK SYSTEMS ADMINSTRATOR Office Visit Tiago Barber Department of Neurology [address] [phone] Jose Lopez MD [address] [phone] documented as of this encounter Results * MRI Thoracic Spine Wo Contrast (07/25/2024 6:42 PM LOCAL AREA NETWORK SYSTEMS ADMINSTRATOR) Anatomical Region Laterality Modality Spine Magnetic Resonan ce 07/25/2024 9:15 PM LOCAL AREA NETWORK SYSTEMS ADMINSTRATOR Impressions 07/25/2024 9:16 PM LOCAL AREA NETWORK SYSTEMS ADMINSTRATOR Unremarkable thoracic spinal MRI with no significant spinal canal or neural foraminal stenosis. [id number] Narrative 07/25/2024 9:16 PM LOCAL AREA NETWORK SYSTEMS ADMINSTRATOR EXAMINATION: MRI THORACIC SPINE WO CONTRAST CLINICAL HISTORY: M54.12 Radiculopathy cervical region, M53.2X2 Spinal instabilities cervical region, Radiculopathy cervical region. Spinal instabilities cervical region. Pain in thoracic spine. Low back pain unspecified. COMPARISON: None. TECHNIQUE: Multiplanar MRI imaging without IV Gadolinium was performed. FINDINGS: There is normal thoracic kyphosis and alignment. Vertebral bodies are preserved. Bone marrow is unremarkable with no evidence of acute fracture or suspicious marrow-replacing lesion. Intervertebral disc spaces are relatively preserved. The spinal cord is normal in signal and configuration. There is no significant posterior disc pathology, spinal canal or neural foraminal stenosis. Visualized paraspinal soft tissues are unremarkable. Procedure Note Mason Becerril MD - 07/25/2024 EXAMINATION: MRI THORACIC SPINE WO CONTRAST CLINICAL HISTORY: M54.12 Radiculopathy cervical region, M53.2X2 Spinalinstabilities cervical region, Radiculopathy cervical region. Spinalinstabilities cervical region. Pain in thoracic spine. Low back painunspecified. COMPARISON: None. TECHNIQUE: Multiplanar MRI imaging without IV Gadolinium was performed. FINDINGS: There is normal thoracic kyphosis and alignment. Vertebral bodies arepreserved. Bone marrow is unremarkable with no evidence of acute fractureor suspicious marrow-replacing lesion. Intervertebral disc spaces arerelatively preserved. The spinal cord is normal in signal and configuration. There is no significantposterior disc pathology, spinal canal or neural foraminal stenosis. Visualized paraspinal soft tissues are unremarkable. IMPRESSION: Unremarkable thoracic spinal MRI with no significant spinal canal orneural foraminal stenosis. [id number] Stefani James PA-C [facility] MRI ORDERABLES Final Result * MRI Lumbar Spine Wo Contrast (07/25/2024 6:42 PM LOCAL AREA NETWORK SYSTEMS ADMINSTRATOR) Anatomical Region Laterality Modality Spine Magnetic Resonan ce 07/25/2024 9:16 PM LOCAL AREA NETWORK SYSTEMS ADMINSTRATOR Impressions 07/25/2024 9:17 PM LOCAL AREA NETWORK SYSTEMS ADMINSTRATOR Unremarkable lumbar spinal MRI with no significant spinal canal or neural foraminal stenosis. [id number] Narrative 07/25/2024 9:17 PM LOCAL AREA NETWORK SYSTEMS ADMINSTRATOR EXAMINATION: MRI LUMBAR SPINE WO CONTRAST CLINICAL HISTORY: M54.12 Radiculopathy cervical region, M53.2X2 Spinal instabilities cervical region, Radiculopathy cervical region. Spinal instabilities cervical region. Pain in thoracic spine. Low back pain unspecified. COMPARISON: None. TECHNIQUE: Multiplanar MRI imaging without IV Gadolinium was performed. FINDINGS: There is normal lumbar lordosis and alignment. Vertebral bodies are preserved with no compression fracture. Bone marrow is unremarkable with no evidence of acute fracture or suspicious marrow-replacing lesion. Intervertebral disc spaces are relatively preserved. The distal spinal cord appears unremarkable. The conus medullaris terminates at the L1 level and appears unremarkable. The cauda equina is unremarkable. L1-2: Unremarkable L2-3: Unremarkable L3-4: Unremarkable L4-5: Unremarkable L5-S1: Unremarkable Visualized paraspinal soft tissues are unremarkable. Procedure Note Mason Becerril MD - 07/25/2024 EXAMINATION: MRI LUMBAR SPINE WO CONTRAST CLINICAL HISTORY: M54.12 Radiculopathy cervical region, M53.2X2 Spinalinstabilities cervical region, Radiculopathy cervical region. Spinalinstabilities cervical region. Pain in thoracic spine. Low back painunspecified. COMPARISON: None. TECHNIQUE: Multiplanar MRI imaging without IV Gadolinium was performed. FINDINGS: There is normal lumbar lordosis and alignment. Vertebral bodies arepreserved with no compression fracture. Bone marrow is unremarkable withno evidence of acute fracture or suspicious marrow-replacing lesion.Intervertebral disc spaces are relatively preserved. The distal spinal cord appears unremarkable. The conusmedullaris terminates at the L1 level and appears unremarkable. The caudaequina is unremarkable. L1-2: Unremarkable L2-3: Unremarkable L3-4: Unremarkable L4-5: Unremarkable L5-S1: Unremarkable Visualized paraspinal soft tissues are unremarkable. IMPRESSION: Unremarkable lumbar spinal MRI with no significant spinal canal or neuralforaminal stenosis. [id number] Stefani James PA-C [facility] MRI ORDERABLES Final Result * MRI Cervical Spine Wo Contrast (07/25/2024 6:42 PM LOCAL AREA NETWORK SYSTEMS ADMINSTRATOR) Anatomical Region Laterality Modality Spine Magnetic Resonan ce 07/25/2024 9:17 PM LOCAL AREA NETWORK SYSTEMS ADMINSTRATOR Impressions 07/25/2024 9:19 PM LOCAL AREA NETWORK SYSTEMS ADMINSTRATOR Stable cervical spinal MRI with no significant spinal canal or neural foraminal stenosis. 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 No cervical spinal cord syrinx. [id number] Narrative 07/25/2024 9:19 PM LOCAL AREA NETWORK SYSTEMS ADMINSTRATOR EXAMINATION: MRI CERVICAL SPINE WO CONTRAST CLINICAL HISTORY: M54.12 Radiculopathy cervical region, M53.2X2 Spinal instabilities cervical region, Radiculopathy cervical region. Spinal instabilities cervical region. Pain in thoracic spine. Low back pain unspecified. COMPARISON: MRI of the cervical spine dated July 08, 2024 TECHNIQUE: Multiplanar MRI imaging without IV Gadolinium was performed. FINDINGS: There is normal cervical lordosis and alignment. The vertebral bodies are preserved. Bone marrow is unremarkable with no evidence of acute fracture or suspicious marrow-replacing lesion. Intervertebral disc spaces are relatively preserved. The spinal cord and posterior fossa are normal in signal. There is a again noted the slight inferior cerebellar tonsillar ectopia measuring 4 mm with patent foraminal magnum. There is no syrinx in the cervical spine cord. There is normal flow signal in both cervical vertebral arteries. C2-3: There is no significant neural foraminal stenosis. No significant spinal canal stenosis is suspected. C3-4: There is no significant neural foraminal stenosis. No significant spinal canal stenosis is suspected. C4-5: There is no significant neural foraminal stenosis. No significant spinal canal stenosis is suspected. C5-6: There is no significant neural foraminal stenosis. No significant spinal canal stenosis is suspected. C6-7: There is no significant neural foraminal stenosis. No significant spinal canal stenosis is suspected. C7-T1: There is no significant neural foraminal stenosis. No significant spinal canal stenosis is suspected. Visualized neck soft tissues are unremarkable. Procedure Note Mason Becerril MD - 07/25/2024 EXAMINATION: MRI CERVICAL SPINE WO CONTRAST CLINICAL HISTORY: M54.12 Radiculopathy cervical region, M53.2X2 Spinalinstabilities cervical region, Radiculopathy cervical region. Spinalinstabilities cervical region. Pain in thoracic spine. Low back painunspecified. COMPARISON: MRI of the cervical spine dated July 08, 2024 TECHNIQUE: Multiplanar MRI imaging without IV Gadolinium was performed. FINDINGS: There is normal cervical lordosis and alignment. The vertebral bodiesare preserved. Bone marrow is unremarkable with no evidence of acutefracture or suspicious marrow-replacing lesion. Intervertebral discspaces are relatively preserved. The spinal cord and posterior fossa are normal in signal. There is a againnoted the slight inferior cerebellar tonsillar ectopia measuring 4 mm withpatent foraminal magnum. There is no syrinx in the cervical spine cord.There is normal flow signal in both cervical vertebral arteries. C2-3: There is no significant neural foraminal stenosis. No significantspinal canal stenosis is suspected. C3-4: There is no significant neural foraminal stenosis. No significantspinal canal stenosis is suspected. C4-5: There is no significant neural foraminal stenosis. No significantspinal canal stenosis is suspected. C5-6: There is no significant neural foraminal stenosis. No significantspinal canal stenosis is suspected. C6-7: There is no significant neural foraminal stenosis. No significantspinal canal stenosis is suspected. C7-T1: There is no significant neural foraminal stenosis. No significantspinal canal stenosis is suspected. Visualized neck soft tissues are unremarkable. IMPRESSION: Stable cervical spinal MRI with no significant spinal canal or neuralforaminal stenosis. Stable slight inferior cerebellar tonsillar ectopia with patent foramenmagnum. No cervical spinal cord syrinx. [id number] Stefani James PA-C [facility] MRI ORDERABLES Final Result documented in this encounter Visit Diagnoses Diagnosis Radiculopathy, cervical region- Primary Brachial neuritis or radiculitis nos Spinal instabilities, cervical region Pain in thoracic spine Low back pain, unspecified Radiculopathy, cervical region Brachial neuritis or radiculitis nos Spinal instabilities, cervical region Pain in thoracic spine Low back pain, unspecified documented in this encounter Additional Health Concerns Infection Onset Date Last Indicated Resolved Time r/o Meningitis (D) 09/23/2024 09/23/2024 10:32 PM CDT documented as of this encounter Care Teams Production Proofreader Relationship Specialty Start Date End Date Asked, No Pcp [id number] PCP - General 01/21/25 documented as of this encounter
--- OUTSIDE RECORDS SUMMARY | 2025-04-15 08:52 | XMS_ITS | Encounter Summary ---
Author Organization [facility] Address [address] [place] [address] Care Team Providers Care Production Repairer Name Role Phone Asked, No Pcp Primary Care Provider Unavailabl e Reason for Visit * Reason Comments Med Refill Encounter Details Date Type Department Care Team (Late st Contact Info) Description 12/11/2024 Refill [facility] Department of Neurology [address], [facility] [address] [place] [phone] Jose Lopez MD [address] [place] [address] Pressure in head Social History Tobacco Use Types Packs/Day Years [...] have a [facility] place to live 09/27/2024 Think about [...] AM CDT Legal Sex Female 10:29 AM FAMILY DENTIST Gender Identity Female 11/02/2024 9:00 AM CDT Sexual Orientation Not on file documented as of this encounter Plan of Treatment Upcoming Encounters Date Type Department Care Team (Late st Contact Info) Description 05/09/2025 8:30 AM FAMILY DENTIST Office Visit [place] Elisabeth Pineda Department of Neurology [address] [place] [phone] Lubna Luong PSY.D [address] [place] [address] 05/27/2025 2:00 PM FAMILY DENTIST Ancillary Procedure [facility] [address] [place] [address] [place] [phone] Elizabeth Ta MD [address] [place] [address] [phone] 05/27/2025 2:30 PM FAMILY DENTIST Office Visit [place] [facility] [address] [place] [address] [place] [phone] Elizabeth Ta MD [address] [place] [address] [phone] 06/26/2025 3:40 PM FAMILY DENTIST Office Visit [facility] Department of Neurology [address], [address] [place] [phone] Jose Lopez MD [address] [place] [address] documented as of this encounter Visit Diagnoses Diagnosis Pressure in head documented in this encounter Care Teams Production Repairer Relationship Specialty Start Date End Date Asked, No Pcp [id number] PCP - General 01/21/25 documented as of this encounter
--- OUTSIDE RECORDS SUMMARY | 2025-04-15 08:52 | XMS_ITS | Encounter Summary ---
Author Organization [facility] Address [address] [place] [address] Care Team Providers Care Photographic Equipment Mechanic Name Role Phone Asked, No Pcp Primary Care Provider Unavailabl e Encounter Details Date Type Department Care Team ([facility] st Contact Info) Description 03/06/2025 Results Follow-Up [facility] [address] [facility] [address] [place] [phone] Abdiel Fiore MD [address] [facility] [address] [place] [address] General Sleep Study ( [facility]) Social History Tobacco Use Types Packs/Day Years [...] AM CDT Legal Sex Female 10:29 AM SECURITY INCIDENT HANDLER Gender Identity Female 11/02/2024 9:00 AM CDT Sexual Orientation Not on file documented as of this encounter Plan of Treatment Upcoming Encounters Date Type Department Care Team (Late st Contact Info) Description 05/09/2025 8:30 AM SECURITY INCIDENT HANDLER Office Visit [place] Elisabeth Pineda Department of Neurology [address] [place] [phone] Lubna Luong PSY.D [address] [place] [address] 05/27/2025 2:00 PM SECURITY INCIDENT HANDLER Ancillary Procedure [facility] [address] [place] [address] [place] [phone] Elizabeth Ta MD [address] [place] [phone] 05/27/2025 2:30 PM SECURITY INCIDENT HANDLER Office Visit [place] [facility] [address] [place] [address] [place] [phone] Elizabeth Ta MD [address] [place] [address] [phone] 06/26/2025 3:40 PM SECURITY INCIDENT HANDLER Office Visit [facility] Department of Neurology [address], [address] [place] [phone] Jose Lopez MD [address] [place] [address] documented as of this encounter Visit Diagnoses Not on filedocumented in this encounter Care Teams Photographic Equipment Mechanic Relationship Specialty Start Date End Date Asked, No Pcp [id number] PCP - General 01/21/25 documented as of this encounter
--- OUTSIDE RECORDS SUMMARY | 2025-04-15 08:52 | XMS_ITS | Encounter Summary ---
Author Organization [facility] Address [address] [place] [address] Care Team Providers Care Hourly Shift Name Role Phone Asked, No Pcp Primary Care Provider Unavailabl e Encounter Details Date Type Department Care Team (Late st Contact Info) Description 01/12/2025 Ophth Exam [facility] [address] [phone] Madi Quesada MD [address] [address] Social History Tobacco Use Types Packs/Day Years Used Date Smoking Tobacco: Never Smokeless Tobacco: Never Alcohol Use Standard Drinks/Week Comments Never 0 (1 standard drink = 0.6 oz pur e alcohol) PHQ-2 Answer Date Recorded PHQ-9 Total Score 0 01/15/2025 Hunger Vital Sign Answer Date Recorded Within [...] AM CDT Legal Sex Female 10:29 AM CUPOLA PATCHER Gender Identity Female 11/02/2024 9:00 AM CDT Sexual Orientation Not on file documented as of this encounter Plan of Treatment Upcoming Encounters Date Type Department Care Team (Late st Contact Info) Description 05/09/2025 8:30 AM CUPOLA PATCHER Office Visit [place] Elisabeth Pineda Department of Neurology [address] [phone] Lubna Luong PSY.D [address] [facility] [address] [place] [phone] 05/27/2025 2:00 PM CUPOLA PATCHER Ancillary Procedure [facility] [address] [place] [address] [place] [phone] Elizabeth Ta MD [address] [place] [address] [phone] 05/27/2025 2:30 PM CUPOLA PATCHER Office Visit [facility] [address] [place] [address] [place] [phone] Elizabeth Ta MD [address] [place] [phone] 06/26/2025 3:40 PM CUPOLA PATCHER Office Visit [facility] Department of Neurology [address], [facility] [address] [place] [phone] Jose Lopez MD [address] [place] [address] documented as of this encounter Visit Diagnoses Not on filedocumented in this encounter Care Teams Hourly Shift Relationship Specialty Start Date End Date Asked, No Pcp [id number] PCP - General 01/21/25 documented as of this encounter
--- OUTSIDE RECORDS SUMMARY | 2025-04-15 08:52 | XMS_ITS | Encounter Summary ---
Author Organization [facility] Address [address] [place] [address] Care Team Providers Care Talent Consultant Name Role Phone Asked, No Pcp Primary Care Provider Unavailabl e Reason for Visit * Reason Onset Date Comments General Inquiry/Return Call 12/17/2024 Spk with at, she adv me she wanted to see provider in [facility] Encounter Details Date Type Department Care Team (Late Contact Info) Description 12/17/2024 Telephone [facility] [address] [facility] [address] [facility] [place] [phone] Calista Campos MA Social History Tobacco Use Types Packs/Day Years [...] AM CDT Legal Sex Female 10:29 AM SOA ARCHITECT Gender Identity Female 11/02/2024 9:00 AM CDT Sexual Orientation Not on file documented as of this encounter Plan of Treatment Upcoming Encounters Date Type Department Care Team (Late st Contact Info) Description 05/09/2025 8:30 AM SOA ARCHITECT Office Visit [place] Elisabeth Pineda Department of Neurology [address] [phone] Lubna Luong PSY.D [address] [phone] 05/27/2025 2:00 PM SOA ARCHITECT Ancillary Procedure [facility] [address] [place] [address] [place] [phone] Elizabeth Ta MD [address] [place] [phone] 05/27/2025 2:30 PM SOA ARCHITECT Office Visit [place] [facility] [address] [place] [address] [place] [phone] Elizabeth Ta MD [address] [place] [address] 06/26/2025 3:40 PM SOA ARCHITECT Office Visit [facility] Department of Neurology [address], [address] [place] [phone] Jose Lopez MD [address] [place] [address] documented as of this encounter Visit Diagnoses Not on filedocumented in this encounter Care Teams Talent Consultant Relationship Specialty Start Date End Date Asked, No Pcp [id number] PCP - General 01/21/25 documented as of this encounter"
--- OUTSIDE RECORDS SUMMARY | 2025-04-15 08:52 | XMS_ITS | Encounter Summary ---
Author Organization [facility] Address [address] [place] [address] Care Team Providers Care Supervisor Sawmill Name Role Phone Asked, No Pcp Primary Care Provider Unavailabl e Reason for Referral * Diagnostic Imaging (Routine) - Closed Specialty Diagnoses / Procedures Referred By Contac t Referred To Contact Diagnoses Postural orthostatic tachycardia syndrome (POTS) Procedures Cv tilt table (non invasive imaging) Quinn Watson MD [address] [place] [id number] Phone: tel: fax: [place] [address] [place] [address] Phone: tel: Referral ID Status Reason Start Date Expiration Date Visits Re quested Visits Authorized [id number] Closed 10/31/2024 10/31/2025 1 1 Encounter Details Date Type Department Care Team (Late st Contact Info) Description 10/31/2024 Transcribe Orders [facility] Central Scheduling [phone] [place] [id number] [address] Postural orthostatic tachycardia syndrome (POTS) (Primary Dx) Social History Tobacco Use Types Packs/Day Years Used Date Smoking Tobacco: Never Smokeless Tobacco: Never Alcohol Use Standard Drinks/Week Comments Never 0 (1 standard drink = 0.6 oz pur e alcohol) PHQ-2 Answer Date Recorded PHQ-9 Total Score 0 10/02/2024 Hunger Vital Sign Answer Date Recorded Within [...] your living situation today? I have a [facility] place to live 09/27/[address] you li ve. Do you have problems with any of the following? 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 Gender Identity Female 11/02/2024 9:00 AM CDT Sexual Orientation Not on file documented as of this encounter Plan of Treatment Upcoming Encounters Date Type Department Care Team (Late st Contact Info) Description 05/09/2025 8:30 AM STITCHING MACHINE SETTER Office Visit Tiago Pineda Department of Neurology [address] [facility] [address] [place] [address] Lubna Luong PSY.D [address] [facility] [address] [place] [address] 05/27/2025 2:00 PM STITCHING MACHINE SETTER Ancillary Procedure [facility]ago [facility] [address] [place] [address] [address] [place] [phone] [place] [address] [facility] [address] [place], [place] [address] 05/27/2025 2:30 PM STITCHING MACHINE SETTER Office Visit [facility] [address] [place] [address] 1 [address] [place] [phone] Elizabeth Ta MD [id number] [place] [address] [address] [place], [place] [address] 06/26/2025 3:40 PM STITCHING MACHINE SETTER Office Visit [facility] Department of Neurology [address], [place] [address] [place] [phone] Jose Lopez MD [address] [id number] documented as of this encounter Results * Cv tilt table (non invasive imaging) (11/12/2024 11:55 AM CDT) Impressions [facility] - 11/13/2024 10:17 AM CDT Normal tilt table study. RECOMMENDATIONS: Outpatient followup. Narrative [facility] - 11/13/2024 10:17 AM CDT INDICATION: Light headedness, syncope TECHNIQUE: The patient was monitored supine with continuous telemetry and intermittent automatic blood pressure cuff monitoring for approximately 30 minutes. The blood pressure was 116/61 with a heart rate of 83 at baseline. The patient was then placed in a 90 upright position, and blood pressure and pulse continued to be monitored for 20 minutes. During that interval, the maximum heart rate recorded was 71 bpm, and the minimum was 89 bpm. Blood pressure recordings ranged from a high of 118/71 to a low of 104/66. No symptoms were recorded. Quinn Watson MD [facility] OR DERABLES Final Result Performing Organization Address City/State/[facility] Co de Phone Number [facility] [address] [place] [address] documented in this encounter Visit Diagnoses Diagnosis Postural orthostatic tachycardia syndrome (POTS)- Primary Postural orthostatic tachycardia syndrome (POTS) documented in this encounter Care Teams Supervisor Sawmill Relationship Specialty Start Date End Date Asked, No Pcp [id number] PCP - General 01/21/25 documented as of this encounter
--- NOTE | 2025-04-15 13:28 | A.OFFVIS_ITS ---
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 BMI 36.8: Details: Start time: 1.15pm, End time: 2.15pm ?I spent 55 minutes speaking with the patient on the phone plus an additional 5 minutes reviewing and updating records for a total of 60 minutes HPI Comments Details: Previous weight loss efforts: Keto, Mediteranean, OA, Tirzepatide/Semaglutide (could not tolerate them) Wakes up: 7.30-8am, Sleeps: 2am, Naps: 30min Breakfast: 10-11am (scrambled eggs, albanian toast) Lunch: 2-3pm (chicken, broccoli) Dinner: 8-9pm (beef, chicken, tacos) Snacks: 12am (toast, eggs) Exercise: none Beverages: Coffee/Tea/Soda: none, 1% milk (4-5 cups/day), Juice: none, ETOH: none PFSH Medical History (Updated 04/15/25 @ 13:57 by Дмитрий Bhakta MD) BMI 36.0-36.9,adult Obesity External cerebral ventricular fluid drainage catheter present Chiari I malformation Idiopathic intracranial hypertension Surgical History (Updated 03/01/25 @ 13:14 by GILDA Plascencia) [place] teeth removed Family History (Updated 03/01/25 @ 13:15 by GILDA Plascencia) Mother Breast cancer Telehealth Telehealth Telehealth Platform: Telephone Location of provider rendering services: practice address Location of patient: address on file Patient Identification confirmed using: Name, : Yes Telehealth method: voice only Patient verbally consented to treatment: Yes Patient verbally consented to billing insurance company: Yes Patient informed of any privacy concerns related to visit: Yes Minutes spent on Phone/Video with Pt.: 60 Assessment & Plan Assessment & Plan (1) Obesity: Code(s): E66.9 - Obesity, unspecified Category: Medical Qualifiers: Obesity type: due to excess calories Obesity classification: adult class 2 (BMI 35 - 39.9) Serious obesity comorbidity presence: with serious comorbidity Body mass index: BMI 36.0-36.9 Qualified Code(s): E66.812 - Obesity, class 2; Z68.36 - Body mass index [BMI] 36.0-36.9, adult Plan: 1.? Plan for lap sleeve gastrectomy. If diaphragmatic or ventral hernias are present at time of surgery, these will be repaired laparoscopically as well. I emphasized the importance of close follow-up, adherence to instructions and good communication. The surgery does not replace the need to change your lifestlyle which is the cause of the obesity problem. The surgery provides the motivation to try again to change your lifestyle, it reduces the appetite and make the transition to a better lifestyle easier and doubles the amount of weight you would lose compared to doing the lifestyle change without the surgery. You will need to be on a liquid diet with protein shakes for 2 weeks before surgery to maximize weight loss and boost your nutritional status to recover better from surgery and also for the first two weeks after surgery to let the stomach heal before we introduce other foods. After the first 2 weeks we will introduce protein bars and soft foods like scrambled eggs, cottage cheese and yogurt and after the 6th week will introduce meat, fish and cooked vegetables in small amounts. Over time you should be able to eat everything in small amounts. Side effects like nausea, vomiting, heartburn or abdominal pain are not common in the practice unless you are not following in the practice. This operation requires lifetime commitment to following in our practice and communication with me. You will much less weight and experience side effects if you don?t communicate or not following in the practice. Complications are rare and in our practice is about 1/10 of the national average. However, you can develop bleeding that may require transfusion (hasn?t happened for year in the practice), you may from complications (we did not have any deaths in the practice) and infections. Infections are usually a result of breakdown in communication or not understanding or following directions correctly. They are difficult to treat, they can happen during the first 6 weeks, they may require to be in the hospital for weeks or even months, not being able to eat by mouth and you may have drains and surgeries to try and correct the issue. Other risks and complications include possible conversion to an open procedure, leaks, small bowel obstruction, blood clots, cardiac, or pulmonary complications, as senior living complications such as ulcers, insufficient weight loss and vitamin deficiencies. 2. Nutritional counseling. Start with one CELEBRATE REBUILD protein (buy online with the link I gave you) shake (ONE scoop in 8oz low fat unsweetened almond milk) at 9am-11am, 1 protein bar (CELEBRATE protein bars, buy at [facility], buy online with the link I gave you) ) at 12pm-2pm, another CELEBRATE REBUILD protein shake (ONE scoop in 8oz low fat unsweetened almond milk) at 3pm- 5pm, dinner at 6pm (8 forks of protein and 8 forks of salad/vegetables) AND TWO Celebrate protein bars after dinner at 8pm-10pm and 11pm to 1am. So you do 2 protein shakes, 3 protein bars and one meal per day. Meal to include lean meat (beef, fish, pork, turkey, chicken), or romansh yogurt, or egg whites, or beans with a salad with olive oil and fruits (berries, pears, apples, kiwi). Avoid salt, breads, potatoes, rice, pasta, desserts. 3. Each shake would be drunk slowly, like coffee in a period of 2 hours. 4. Cut each bar in 4 pieces and eat each piece in 30min ?to make each bar last 2 hours. 5. I emphasized the importance of measuring accurately the food portion and measure it when serving the food in plate 6. The meal portions include 8 full-size forks of meat and 8 full-size forks of salad. You always eat the meat portion but you can replace up to 4 forks for salad/vegetables with rice, potatoes or pasta, or a fruit ?if you like. The less you do it the better weight loss will be. 7. One full-size fork is what it can be scooped on the fork without falling aside and not what can be bit with the fork. Use regular forks like those you find in a typical restaurant. 8.? Please buy the body composition scale we discussed and send me weight measurements as soon as possible and then once a week. Always include your diet and exercise plan. 9. The best choice would be to purchase a stationary bike at home that can track calories. If you get one one please start stationary bike at a resistance level of 4.0 Increase level by 1.0 every 3 min to a max level of 10.0. Stay at this level for 3 min and then return to level 4.0 and repeat same steps until 300 calories are burned. Goal is to burn 2000 calories per week on exercise 10.?It is important of avoiding and for at least 18 months postoperatively and has been discussed at the infosession. 11. Goal is to lose at least 1.5-2lbs per week 12. Goal to lose 10% of your weight before surgery, which is about 25lbs. Ultimate weight goal: 210lbs before surgery 13. Please follow the diet plan exactly without any change. If you don't like something about the plan or you feel hungry you need to communicate with me so I can help you revise the plan. You should not change the plan yourself 14. To be scheduled for EGD to assess the stomach's anatomy. The possibility of biopsies was discussed. Patient needs to avoid use of NSAIDs and aspirin for 1 week prior to EGD. You must be on liquids only the day before your endoscopy. Risks of perforation and bleeding was discussed with the patient. This will be an outpatient procedure with IV sedation. Orders: Orders Insulin Today E66.9 - Obesity, unspecified, G93.2 - Benign intracranial hypertension, G93.5 - Compression of brain, Z68.36 - Body mass index [BMI] 36.0- 36.9, adult Complete Blood Count Auto Diff Today E66.9 - Obesity, unspecified, G93.2 - Benign intracranial hypertension, G93.5 - Compression of brain, Z68.36 - Body mass index [BMI] 36.0-36.9, adult IRON PROFILE Today E66.9 - Obesity, unspecified, G93.2 - Benign intracranial hypertension, G93.5 - Compression of brain, Z68.36 - Body mass index [BMI] 36.0- 36.9, adult Comprehensive Met. Panel Today E66.9 - Obesity, unspecified, G93.2 - Benign intracranial hypertension, G93.5 - Compression of brain, Z68.36 - Body mass index [BMI] 36.0-36.9, adult Vitamin B12 and Folate Today E66.9 - Obesity, unspecified, G93.2 - Benign intracranial hypertension, G93.5 - Compression of brain, Z68.36 - Body mass index [BMI] 36.0-36.9, adult Vitamin B1 Today E66.9 - Obesity, unspecified, G93.2 - Benign intracranial hypertension, G93.5 - Compression of brain, Z68.36 - Body mass index [BMI] 36.0- 36.9, adult TSH reflex Free T4 Today E66.9 - Obesity, unspecified, G93.2 - Benign intracranial hypertension, G93.5 - Compression of brain, Z68.36 - Body mass index [BMI] 36.0-36.9, adult Ferritin Today E66.9 - Obesity, unspecified, G93.2 - Benign intracranial hypertension, G93.5 - Compression of brain, Z68.36 - Body mass index [BMI] 36.0- 36.9, adult Vitamin D 25-OH Total Today E66.9 - Obesity, unspecified, G93.2 - Benign intracranial hypertension, G93.5 - Compression of brain, Z68.36 - Body mass index [BMI] 36.0-36.9, adult XR chest 2V Today E66.9 - Obesity, unspecified, G93.2 - Benign intracranial hypertension, G93.5 - Compression of brain, Z68.36 - Body mass index [BMI] 36.0- 36.9, adult FL upper GI w air Today E66.9 - Obesity, unspecified, G93.2 - Benign intracranial hypertension, G93.5 - Compression of brain, Z68.36 - Body mass inde x [BMI] 36.0-36.9, adult Hemoglobin A1c Today E66.9 - Obesity, unspecified, G93.2 - Benign intracranial hypertension, G93.5 - Compression of brain, Z68.36 - Body mass index [BMI] 36.0- 36.9, adult H Pylori Breath Test Today E66.9 - Obesity, unspecified, G93.2 - Benign intracranial hypertension, G93.5 - Compression of brain, Z68.36 - Body mass in dex [BMI] 36.0-36.9, adult Lipid Panel Today E66.9 - Obesity, unspecified, G93.2 - Benign intracranial hypertension, G93.5 - Compression of brain, Z68.36 - Body mass index [BMI] 36.0- 36.9, adult Zinc Today E66.9 - Obesity, unspecified, G93.2 - Benign intracranial hypertension, G93.5 - Compression of brain, Z68.36 - Body mass index [BMI] 36.0-36.9, adult C Reactive Protein Today E66.9 - Obesity, unspecified, G93.2 - Benign intracranial hypertension, G93.5 - Compression of brain, Z68.36 - Body mass index [BMI] 36.0-36.9, adult Vitamin A Today E66.9 - Obesity, unspecified, G93.2 - Benign intracranial hypertension, G93.5 - Compression of brain, Z68.36 - Body mass index [BMI] 36.0- 36.9, adult US abdomen comp w elastography Today E66.9 - Obesity, unspecified, G93.2 - Benign intracranial hypertension, G93.5 - Compression of brain, Z68.36 - Body mass index [BMI] 36.0-36.9, adult ECG 12 lead EKG Today E66.9 - Obesity, unspecified, G93.2 - Benign intracranial hypertension, G93.5 - Compression of brain, Z68.36 - Body mass index [BMI] 36.0- 36.9, adult Referrals Nutrition/Dietitian Referral E66.9 - Obesity, unspecified, G93.2 - Benign intracranial hypertension, G93.5 - Compression of brain, Z68.36 - Body mass index [BMI] 36.0-36.9, adult Behavioral Health Referral E66.9 - Obesity, unspecified, G93.2 - Benign intracranial hypertension, G93.5 - Compression of brain, Z68.36 - Body mass index [BMI] 36.0-36.9, adult
[2025-04-15 13:39] VITALS: BMI 36.8
== END 2025-04-15 14:16 | disposition home or self-care (01) ==
LOC: HO.HBS 08:35
PROVIDERS: Visit Provider Surgery
DX: E66.812 Obesity, class 2 (principal); Z68.36 Body mass index [BMI] 36.0-36.9, adult
CPT/HCPCS: 99205